=== PATIENT | female | born 1975 | race Caucasian/White ===

== ENCOUNTER → 2016-09-19 | Outpatient (CLI) | payer OTHER ==
[~2016-09-19] MED LIST: CITA40TA12 PO; FLUD0.1T10 PO; FOLI1TAB7 PO; NORT25CA PO
[2016-09-19 13:42] LABS: BLOOD UREA NITROGEN 5 mg/dl (7-18); BUN/CREATININE RATIO 5.1 (10-20); CALCIUM 8.4 mg/dl (8.5-10.1); CARBON DIOXIDE 31 mmol/L (21-32); CHLORIDE 98 mmol/L (98-107); CREATININE 0.98 mg/dl (0.60-1.20); GLUCOSE 72 mg/dl (70-99); PHOSPHORUS 2.3 mg/dl (2.5-4.9); POTASSIUM 2.6 mmol/L (3.5-5.1); SODIUM 138 mmol/L (136-145)
== END | disposition home or self-care (01) ==
LOC: C.LABMFLN 10:55
PROVIDERS: ATTEND Family Medicine
DX: E87.6 Hypokalemia (principal)

== ENCOUNTER → 2016-10-10 | Outpatient (CLI) | payer OTHER ==
[2016-10-10 18:23] LABS: BLOOD UREA NITROGEN 11 mg/dl (7-18); BUN/CREATININE RATIO 11.9 (10-20); CALCIUM 8.6 mg/dl (8.5-10.1); CARBON DIOXIDE 31 mmol/L (21-32); CHLORIDE 101 mmol/L (98-107); CREATININE 0.89 mg/dl (0.60-1.20); GLUCOSE 90 mg/dl (70-99); POTASSIUM 3.5 mmol/L (3.5-5.1); SODIUM 141 mmol/L (136-145)
[2016-10-10 18:24] LABS: PHOSPHORUS 2.5 mg/dl (2.5-4.9)
== END | disposition home or self-care (01) ==
LOC: C.LABMFLN 10:31
PROVIDERS: ATTEND Family Medicine
DX: E87.6 Hypokalemia (principal)

== ENCOUNTER → 2017-04-23 | Outpatient (CLI) | payer OTHER ==
[2017-04-23 14:05] LABS: FERRITIN 5.8 ng/ml (8.0-388.0)
== END | disposition home or self-care (01) ==
LOC: C.LABMFLN 07:57
PROVIDERS: ATTEND Family Medicine
DX: G25.81 Restless legs syndrome (principal)

== ENCOUNTER → 2017-07-01 | Outpatient (CLI) | payer OTHER ==
[~2017-07-01] MED LIST changes: +GADAVIST IV PRN
--- NOTE | 2017-07-01 14:31 | DIAGNOSTIC IMAGING REPORT ---
MRI OF THE BRAIN WITHOUT AND WITH IV CONTRAST CLINICAL HISTORY: HEADACHES COMPARISON STUDY: No previous studies for comparison. TECHNIQUE: MRI of the brain was performed from the vertex to the skull base utilizing various T1 and T2 weighted sequences. Following the IV administration of 5.5 mL of Gadavist contrast, additional enhanced images were obtained. FINDINGS: Sagittal T1, axial diffusion, proton density and T2 weighted axial, coronal FLAIR, and pre and post axial T1-weighted images were acquired. These were supplemented with post gadolinium coronal T1 weighted images. No intra or extra-axial mass lesions are visualized. Axial diffusion-weighted images reveal no evidence of acute or subacute infarction. There is no evidence of ventricular dilatation. Proton density T2-weighted and FLAIR images reveal a few small foci of increased T2 and FLAIR signal within the frontal white matter. These are nonspecific, and are likely small vessel basis, or related to chronic migraines. There are no abnormal flow voids. There is no evidence of pathologic enhancement. IMPRESSION: 1. No acute intracranial findings 2. No evidence of acute or subacute infarction 3. No evidence of intracranial mass 4. There are few nonspecific foci of increased T2 and FLAIR signal within the frontal white matter. Electronically signed by: Edmundo Pierre M.D. 07/01/2017 2:29 PM Dictated Date/Time: 07/01/2017 2:27 PM
== END | disposition home or self-care (01) ==
LOC: C.MRIBC 13:45
PROVIDERS: ATTEND Psychiatry & Neurology Neurology
DX: G24.9 Dystonia, unspecified (principal); R51 Headache

== ENCOUNTER → 2017-08-02 | Outpatient (CLI) | payer OTHER ==
[~2017-08-02] MED LIST changes: -FOLI1TAB7 PO; +FOLI1TAB8 PO; -GADAVIST IV PRN
[2017-08-02 17:56] LABS: BLOOD UREA NITROGEN 7 mg/dl (7-18); BUN/CREATININE RATIO 7.6 (10-20); CALCIUM 8.3 mg/dl (8.5-10.1); CARBON DIOXIDE 29 mmol/L (21-32); CHLORIDE 102 mmol/L (98-107); CREATININE 0.88 mg/dl (0.60-1.20); GLUCOSE 82 mg/dl (70-99); PHOSPHORUS 2.3 mg/dl (2.5-4.9); POTASSIUM 3.2 mmol/L (3.5-5.1); SODIUM 137 mmol/L (136-145)
== END | disposition home or self-care (01) ==
LOC: C.LABMFLN 13:26
PROVIDERS: ATTEND Family Medicine
DX: I95.1 Orthostatic hypotension (principal)

== ENCOUNTER → 2017-10-15 | Outpatient (CLI) | payer OTHER ==
[2017-10-15 18:13] LABS: ALBUMIN 3.8 gm/dl (3.4-5.0); BLOOD UREA NITROGEN 11 mg/dl (7-18); CALCIUM 8.7 mg/dl (8.5-10.1); CARBON DIOXIDE 29 mmol/L (21-32); CREATININE 0.87 mg/dl (0.60-1.20); GLUCOSE 118 mg/dl (70-99); POTASSIUM 3.2 mmol/L (3.5-5.1); SODIUM 136 mmol/L (136-145)
[2017-10-15 18:14] LABS: PHOSPHORUS 2.4 mg/dl (2.5-4.9)
== END | disposition home or self-care (01) ==
LOC: C.LABMFLN 15:33
PROVIDERS: ATTEND Family Medicine
DX: E87.6 Hypokalemia (principal)

== ENCOUNTER 2023-12-24 12:16 | Inpatient (IN) ==
--- NOTE | 2023-12-24 12:34 | Emergency Department Note ---
ED Provider Note History of Present Illness Chief Complaint: Ear Pain/Problem Stated Complaint: RT EAR PAIN, MOVING DOWN FACE Time Seen by Provider: 12/24/23 12:33 This is a 48-year-old female general with a prior history of wall up mastoidectomy, mastoiditis transferred to [facility] 7 months ago, hearing loss uses bilateral hearing aids, CKD, who presents to the emergency department with pain behind her right ear that started last night and worsened today. She is concerned she is developing another infection as this feels very similar. Patient was seen in this emergency department 7 months ago and was subsequently transferred to [facility] where she was admitted. She states that the area behind her ear was aspirated multiple times and grew out E. coli and she was treated with IV antibiotics and then oral antibiotics. She states that she has a history of a recurrent UTI which also grows out E. coli and she feels like she has a UTI right now. Her urine has been more malodorous lately which is consistent with her UTIs. She denies any fevers or drainage from her ear canal. Nothing draining from behind her ear. Has not taken anything for the pain yet. Does not get her periods any longer. History of tympanostomy tubes in the past, does not have any tubes currently. Home Medications Medication Instructions Recorded Confirmed Type [id number] 1 tab PO Q4H PRN headache #30 tabs 06/19/19 12/24/23 Rx 50 mg-325 mg-40 mg tablet cetirizine 10 mg tablet 10 mg PO BID #60 tabs 08/20/19 12/24/23 Rx hydroxyzine HCl 25 mg tablet 25 mg PO HS PRN Itching 02/23/20 12/24/23 History multivitamin-ferrous 1 tab PO HS 02/23/20 12/24/23 History fumarate-folic acid 18 mg-400 mcg tablet (Centrum Women) cyanocobalamin (vitamin B-12) 1,000 mcg subcut .COMPLEX 05/27/20 12/24/23 History 1,000 mcg/mL injection solution rizatriptan 10 mg disintegrating 10 mg PO .COMPLEX #10 tabs 11/24/21 12/24/23 Rx tablet vortioxetine 10 mg tablet 20 mg PO DAILY 11/24/21 12/24/23 History (Trintellix) epinephrine 0.3 mg/0.3 mL 0.3 mg (0.3 mL) IM Q4H PRN 03/20/23 12/24/23 Rx injection, auto-injector (EpiPen anaphylaxis #2 [id number]) nortriptyline 25 mg capsule 75 mg (3 x 25 mg) PO HS #270 caps 07/08/23 12/24/23 Rx alprazolam 1 mg tablet 1 mg PO HS #30 tabs 08/19/23 12/24/23 History quetiapine 25 mg tablet (Seroquel) 75 mg PO HS 08/19/23 12/24/23 History famotidine 20 mg tablet 20 mg PO HS 10/21/23 12/24/23 History folic acid 1 mg tablet 1 mg PO DAILY 12/24/23 12/24/23 History ropinirole 0.25 mg tablet 0.5 mg PO HS PRN Other 12/24/23 12/24/23 History Allergies Allergy/AdvReac Type Severity Reaction Status Date / Time ciprofloxacin [From Cipro] Allergy Intermediate Hives Verified 11/06/23 15:10 Iodinated Contrast Media Allergy Intermediate HIVES, Verified 11/06/23 15:10 DIARRHEA Sulfa (Sulfonamide Allergy Intermediate HIVES Verified 11/06/23 15:10 Antibiotics) Past Med/Surg History Problem List (Updated 12/24/23 @ 22:32 by ABNER Esqueda) Middle ear effusion (Acute) Cellulitis of postauricular region (Acute) Mastoiditis of right side Abnormal Pap smear of cervix (~11/06/23) NILM HPV positive. 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 [place] [facility] [place] 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 ([place]) Medical History Scoliosis IBS (irritable bowel syndrome) Hearing loss Orthostatic hypotension 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, 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 prosthesis in place Surgical History H/O lithotripsy H/O pelvic surgery desmoid tumor, s/p chemo and surgery History of ear surgery TUBE INSERTED AND REMOVED H/O dilation and curettage H/O section History of bronchoscopy Family History Mother Diabetes Sinus disorder Grandmother (Maternal) Non Hodgkin's lymphoma Social History Smoking Status: Never smoker Second Hand Exposure: Yes; Do You Dip or Chew Tobacco: No; Hx Alcohol Use: Yes Alcohol type: wine Hx Substance Use: No Preferred Language: Romansh Communication Ability: Effective Visual Impairment: No Limitations Hvac/R Instructor Required: No Beliefs That Will Affect Care: None marital status: Current Living Situation: Alone, Spouse and Parent Current Living Situation Comment: one story home current occupational status: employed Other Information That Helps Us Care for You: No Feels Safe at Home: Yes Safety Concerns: Feels Safe At This Time Assistive Devices: Denture - Upper, Glasses and Hearing Aid - Bilateral Physical Exam Vital Signs Vital Signs - 24 hr 12/24/23 12:29 12/24/23 14:00 Temperature 97.7 F Temperature Source Oral Pulse Rate 102 H Pulse Rate [Left Finger] 92 H Respiratory Rate 20 20 Blood Pressure 131/82 Blood Pressure [Left Arm] 142/100 H Blood Pressure Mean 98 Blood Pressure Mean [Left Arm] 114 Pulse Oximetry 97 100 Sepsis Recent Fever Within 48 Hours No Sepsis New/Unexplained Change in Mental Status No Sepsis Action Taken by Nursing No Action Required CONSTITUTIONAL: Well developed, well nourished, appears to be in pain holding the right ear HEAD: Normocephalic, atraumatic. EYES: PERRL, conjunctivae normal, extraocular muscles intact. No periorbital edema or erythema. ENMT: Left ear: Unremarkable exam Right ear: No obvious edema or erythema about the external ear. There is erythema and exquisite tenderness noted to the posterior auricular and mastoid area. There is no fluctuance. No active discharge. No open wounds. The canal is clear. TM partially visualized which does not appear to be obviously erythematous or bulging, no obvious perforation. Exam limited by patient's discomfort. Oral mucous membranes are moist. Cleft palate device in place. No oropharyngeal erythema. NECK: Full active range of motion. No rigidity. LYMPHATIC: There is right anterior cervical adenopathy. RESPIRATORY: Breathing unlabored and symmetric. Lungs clear to auscultation bilaterally. No wheeze, rales, or rhonchi. CARDIOVASCULAR: Regular rate and rhythm. No murmurs, rubs, or gallops. MUSCULOSKELETAL: Moves all extremities at all joints without pain or difficulty. SKIN: Bertrand, warm, dry. NEUROLOGIC: Awake, alert, oriented. Gaze is conjugate. Face symmetric, speech normal. Moves head and all four extremities spontaneously. Course Administered Medications Alprazolam (Alprazolam 0.5 Mg Tablet) 1 mg PO HS [facility] Stop: 01/23/24 20:59 Last Admin: 12/24/23 21:23 Dose: 1 mg Documented By: RES Cetirizine HCl (Cetirizine Hcl 10 Mg Tablet) 10 mg PO BID [facility] Stop: 01/23/24 20:59 Last Admin: 12/24/23 19:31 Dose: 10 mg Documented By: RES Famotidine (Famotidine 20 Mg Tab) 20 mg PO [facility] Stop: 01/23/24 20:59 Last Admin: 12/24/23 19:31 Dose: 20 mg Documented By: KELLEN Hydromorphone HCl (Hydromorphone Inj 1 Mg/Ml Syringe) 1 mg IV Q4H PRN PRN Reason: Severe Pain (7,8,9,10) on NRS Stop: 01/07/24 16:40 Last Admin: 12/24/23 19:35 Dose: 1 mg Documented By: RES Piperacillin Sod/Tazobactam (Sod 4.5 gm/ Dextrose) 100 mls @ 25 mls/hr IV Q12H [facility]; Protocol Stop: 01/03/24 21:59 Last Admin: 12/24/23 21:23 Dose: 25 mls/hr Documented By: KELLEN Miscellaneous (Trintellix~Order Awaiting Action) 1 each N/A QS [facility] Stop: 01/23/24 17:59 Last Admin: 12/24/23 19:30 Dose: Not Given Documented By: KELLEN Multivitamins/Minerals (Cerovite Adv Formula Tab) 1 tab PO [facility] Stop: 01/23/24 20:59 Last Admin: 12/24/23 19:31 Dose: 1 tab Documented By: KELLEN Nortriptyline HCl (Nortriptyline Hcl 25 Mg Cap) 75 mg PO [facility] Stop: 01/23/24 20:59 Last Admin: 12/24/23 19:30 Dose: 75 mg Documented By: KELLEN Quetiapine Fumarate (Quetiapine Fumarate 25 Mg Tablet) 75 mg PO [facility] Stop: 01/23/24 20:59 Last Admin: 12/24/23 19:31 Dose: 75 mg Documented By: KELLEN Discontinued Medications Hydromorphone HCl (Hydromorphone Inj 0.5 Mg/0.5 Ml Syr) 0.5 mg IV NOW STA Stop: 12/24/23 14:55 Last Admin: 12/24/23 15:00 Dose: 0.5 mg Documented By: DICKSON Sodium Chloride (Nss) 1,000 mls @ 999 mls/hr IV .Q1H1M ONE Stop: 12/24/23 13:49 Last Infusion: 12/24/23 14:20 Dose: Infused Documented By: Admin: 12/24/23 13:19 Dose: 999 mls/hr Documented By: DICKSON Sodium Chloride (Nss) 500 mls @ 999 mls/hr IV .Q31M ONE Stop: 12/24/23 15:03 Last Infusion: 12/24/23 15:49 Dose: Infused Documented By: Admin: 12/24/23 14:49 Dose: 999 mls/hr Documented By: BRENDA Piperacillin Sod/Tazobactam Sod (Zosyn) 4.5 gm in 100 mls @ 200 mls/hr IV NOW ONE Stop: 12/24/23 16:21 Last Infusion: 12/24/23 16:42 Dose: Infused Documented By: Admin: 12/24/23 16:10 Dose: 200 mls/hr Documented By: BRENDA Morphine Sulfate (Morphine Sulfate 4 Mg/Ml 1 Ml Carp\Vial) 4 mg IV NOW STA Stop: 12/24/23 12:50 Last Admin: 12/24/23 13:19 Dose: 4 mg Documented By: DICKSON Medical Decision Making Differential Diagnosis Mastoiditis, otitis media, otitis externa, abscess, cellulitis, deep neck space infection, lymphadenopathy, among other pathology Medical Records Attestation: I reviewed the patient's medical records. (Reviewed prior ER notes, reviewed discharge summary from [facility] from last year.) Laboratory Data 12/24/23 13:10 12/24/23 13:10 Lab Results 12/24/23 12/24/23 12/24/23 Range/Units 13:00 13:10 15:10 WBC 14.06 H (4.8-10.8) K/ul RBC 4.38 (4.20-5.40) M/uL Hgb 12.7 (12.0-16.0) g/dl Hct 38.9 (37.0-47.0) % MCV 88.8 (80.0-100.0) fL MCH 29.0 (25.0-34.0) pg MCHC 32.6 (32.0-36.0) g/dL RDW Std Deviation 49.3 H (36.4-46.3) fL RDW Coeff of Oscar 15.2 H (11.5-14.5) % Plt Count 241 (130-400) K/uL MPV 10.7 (9.4-12.4) fL Immature Gran % (Auto) 0.5 % Neut % (Auto) 80.4 % Lymph % (Auto) 10.9 % Drew % (Auto) 5.8 % Eos % (Auto) 1.8 % Baso % (Auto) 0.6 % Neut # (Auto) 11.30 H (1.40-6.50) K/uL Lymph # (Auto) 1.53 (1.20-3.40) K/uL Drew # (Auto) 0.82 H (0.11-0.59) K/uL Eos # (Auto) 0.26 (0.00-0.50) K/uL Baso # (Auto) 0.08 (0.00-0.20) K/uL Immature Gran # (Auto) 0.07 (0.01-0.20) K/uL ESR 45 H (0-20) mm/hr Sodium 137 (136-145) mmol/L Potassium 4.9 (3.5-5.1) mmol/L Chloride 101 (98-107) mmol/L Carbon Dioxide 27 (21-32) mmol/L Anion Gap 9 (3-11) BUN 17 (6-23) mg/dl Creatinine 1.35 H (0.6-1.2) mg/dl Est Cr Clr Drug Dosing 47.3 ml/min Est GFR ( Amer) 53.3 ml/min Est GFR (Non-Af Amer) 46.0 ml/min BUN/Creatinine Ratio 12.6 (10-20) Glucose 94 (70-99(Fasting)) mg/dl Lactate 2.5 H* 1.9 (0.4-2.0) mmol/L Calcium 10.2 (8.6-10.3) mg/dl Total Bilirubin 0.4 (0.2-1.0) mg/dl AST 23 (13-39) U/L ALT 29 (7-52) U/L Alkaline Phosphatase 88 (34-104) U/L C-Reactive Protein 0.99 H (0-0.5) mg/dl Total Protein 7.5 (6.0-8.3) gm/dl Albumin 4.1 (3.4-5.0) gm/dl Globulin 3.4 (2.5-4.0) gm/dl Albumin/Globulin Ratio 1.2 (0.9-2) Procalcitonin 0.08 (0-0.5) ng/ml Urine Color Yellow Urine Appearance Clear (Clear) Urine pH 8.0 H (4.5-7.5) Ur Specific [place] 1.010 (1.000-1.030) Urine Protein Negative (Negative) Urine Glucose (UA) Negative (Negative) Urine Ketones Negative (Negative) Urine Blood Negative (Negative) Urine Nitrite Negative (Negative) Urine Bilirubin Negative (Negative) Urine Urobilinogen Negative (Negative) Ur Leukocyte Esterase 1+ H (Negative) Urine WBC (Auto) 6-10 H (0-5) /hpf Urine RBC (Auto) 0-2 (0-2) /hpf U Hyaline Cast (Auto) 0-2 (0-2) /lpf U Epithel Cells (Auto) 6-10 H (0-2) /hpf Urine Bacteria (Auto) None Seen (None Seen) Imaging Data Radiologist's Impression: Temporal Bone CT 12/24/23 13:05 CT temporal bones wo con HISTORY: 48 years-old Female Right sided mastoid redness, tender, hx similar chronic right ear pain COMPARISON: CT temporal bone study 07/06/2023 TECHNIQUE: Multiple axial CT images of the temporal bones were obtained without IV contrast. A dose lowering technique was used consistent with the principals of ALARA. FINDINGS: The imaged intracranial structures demonstrate no acute abnormality. A left- sided hearing aid is present causes streak artifact limiting evaluation of the adjacent structures. A metallic density overlies also causes adjacent streak artifact. Chronic-appearing bony defects in the left maxillary alveolar ridge. Leftward bowing and spurring of the nasal septum. Paranasal sinuses are generally clear. Unremarkable orbits. LEFT: Mastoid air cells are clear. The middle ear cavity is clear. Middle ear ossicles and tympanic membrane appear normal. The scutum is sharp. Intact tegmen tympani. Normal course of the 7th cranial nerve. Normal cochlea and semicircular canals. RIGHT: Subcutaneous edema/soft tissue thickening is again noted in the right periauricular tissues, most pronounced superiorly and posteriorly contiguous with the right mastoidectomy site. Again, the mastoidectomy site is completely opacified. Unchanged osseous irregularity at the mastoidectomy defect, likely a postoperative basis. Mild thickening within the cartilaginous portion of the external auditory canal redemonstrated. The right tympanic membrane is again not identified, possibly absent or retracted. The right middle ear cavity is partially opacified. There is a partial ossicular replacement prosthesis noted which is in the posterior aspect of the middle ear cavity. The residual malleus and incus appear to be irregular consistent with partial erosion. The 7th cranial nerve demonstrates a normal course. No evidence for inner ear dysplasia. IMPRESSION: 1. No significant change compared to the study from 07/06/2023. 2. Findings again suggestive of right-sided otitis externa with periauricular soft tissue prominence contiguous with the mastoidectomy site. These findings may be on a postoperative basis or represent a chronic infectious or inflammatory process. 3. No drainable fluid collections. 4. Right middle ear effusion with chronic bony irregularity of the middle ear ossicles. 5. Normal appearance of the left temporal bone. ACT 112: Negative or not required by law. The above report was generated using voice recognition software. It may contain grammatical, syntax or spelling errors. Electronically signed by: Mazin Au M.D. 12/24/2023 2:17 PM MDM Narrative 48-year-old female presents to the emergency department with worsening severe pain behind her right ear that started yesterday and progressed today. Feels similar to when she was transferred to [facility] 6 months ago for similar presentation. See above for further details. Patient does appear to be uncomfortable holding the right ear. She is tachycardic initially. Afebrile. She has erythema about the right postauricular region which is exquisitely tender to palpation. I am only able to partially visualize the TM limited by discomfort. An IV was inserted and labs were obtained. Patient was given IV fluids and morphine for pain control. Blood cultures were obtained. Labs: Leukocytosis at 14. No anemia. ESR elevated at 45. CRP elevated at 0.99. Creatinine baseline 1.35. Lactate initially elevated at 2.5. This improved to 1 point 1:09 0.5 L IV fluids. No transaminitis. Urine with 1+ leukocyte esterase, 6-10 white blood cells and 6-10 epithelial cells. Reviewed options for imaging with Dr. Ram (radiology) who feels temporal bone CT without contrast would be appropriate initially. This was obtained and read as right-sided otitis externa with periauricular soft tissue prominence, right middle ear effusion, similar to when the patient was seen in this emergency department in June of last year and subsequently transferred. Patient required Dilaudid to control her pain. I called and spoke with Dr. Bailon (ENT on-call) and we reviewed her prior presentation as well as imaging from today. She requested that I speak with [facility] for possible transfer if the patient requires an advanced procedure. I called and spoke with Dr. Hastings (Otolaryngology) at [facility]. He reviewed her prior records. Based on her CT read from today and presentation, he feels comfortable with her not being transferred and being managed medically with IV antibiotics and close monitoring. He will review her images and if he sees anything requiring surgery, will call back to suggest transfer. He states that he will be on-call over the next week and if the patient requires any surgical procedure, he would be happy to accept her. He recommends Zosyn and possible ID consult. I then called back and spoke with Dr. Bailon who is agreeable with the patient being admitted under the hospitalist with ENT consult. Patient agreeable with this plan. Spoke with Dr. Grissom ([facility] hospitalist) who agrees to admit the patient. Impression Cellulitis of postauricular region, Middle ear effusion Discharge Plan Visit Data Chief Complaint: Ear Pain/Problem Stated Complaint: RT EAR PAIN, MOVING DOWN FACE ED Provider: Luis Enrique Manuel ED Midlevel Provider: Harmeet Marshall Discharge Problem: Cellulitis of postauricular region, Middle ear effusion Patient Disposition: Admitted As Inpatient Discharge Instructions Interventions: ED Discharge Assessment Last Done: 12/24/23 17:45 Discharge Problem: Middle ear effusion Qualifiers: Laterality: right Qualified Code(s): H65.91 - Unspecified nonsuppurative otitis media, right ear
[2023-12-24] MEDS: SODIUM CHLORIDE 0.9% 1,000 ML IV ONE (13:19)
[2023-12-24] MEDS: MoRPHine SULFATE 4 MG/ML 1 ML CARP\\VIAL IV STA (13:19)
[2023-12-24 13:31] LABS: Basophils # (auto) 0.08 K/uL (0.00-0.20); Basophils % (auto) 0.6 %; Eosinophils # (auto) 0.26 K/uL (0.00-0.50); Eosinophils % (auto) 1.8 %; Hematocrit (blood only) 38.9 % (37.0-47.0); Hemoglobin 12.7 g/dl (12.0-16.0); Immature Granulocytes # (auto) 0.07 K/uL (0.01-0.20); Immature Granulocytes % (auto) 0.5 %; Lymphocytes # (auto) 1.53 K/uL (1.20-3.40); Lymphocytes % (auto) 10.9 %; Mean Corpuscular Hgb Conc 32.6 g/dL (32.0-36.0); Mean Corpuscular Volume 88.8 fL (80.0-100.0); Mean Platelet Volume 10.7 fL (9.4-12.4); Monocytes # (auto) 0.82 K/uL (0.11-0.59); Monocytes % (auto) 5.8 %; Neutrophils % (auto) 80.4 %; Platelet Count 241 K/uL (130-400); RDW Coefficient of Variation 15.2 % (11.5-14.5); RDW Standard Deviation 49.3 fL (36.4-46.3); Red Blood Count 4.38 M/uL (4.20-5.40); White Blood Count 14.06 K/ul (4.8-10.8)
[2023-12-24 13:55] LABS: Albumin Globulin Ratio 1.2 (0.9-2); Albumin Level 4.1 gm/dl (3.4-5.0); BUN Creatinine Ratio 12.6 (10-20); Bilirubin,Total 0.4 mg/dl (0.2-1.0); C Reactive Protein 0.99 mg/dl (0-0.5); Calcium 10.2 mg/dl (8.6-10.3); Creatinine Clr Calc Pharmacy 47.3 ml/min; Est GFR (African American) 53.3 ml/min; Globulin 3.4 gm/dl (2.5-4.0); Potassium 4.9 mmol/L (3.5-5.1); Total Protein 7.5 gm/dl (6.0-8.3)
[2023-12-24 14:18] LABS: Appearance Urine Clear (Clear); Bacteria Urine Automated None Seen (None Seen); Bilirubin Urine Negative (Negative); Blood Urine Negative (Negative); Cast Urine Automated 0-2 /lpf (0-2); Color Urine Yellow; Glucose Urine UA Negative (Negative); Ketones Urine Negative (Negative); Leukocyte Esterase Urine 1+ (Negative); Nitrite Urine Negative (Negative); Protein Urine Negative (Negative); RBC Urine Automated 0-2 /hpf (0-2); Urobilinogen Urine Negative (Negative)
--- NOTE | 2023-12-24 14:18 | CT Scan Report ---
CT temporal bones wo con HISTORY: 48 years-old Female Right sided mastoid redness, tender, hx similar chronic right ear pain COMPARISON: CT temporal bone study 07/06/2023 TECHNIQUE: Multiple axial CT images of the temporal bones were obtained without IV contrast. A dose l owering technique was used consistent with the principals of VILMA. FINDINGS: The imaged intracranial structures demonstrate no acute abnormality. A left-sided hearing aid is pres ent causes streak artifact limiting evaluation of the adjacent structures. A metallic density overlie s also causes adjacent streak artifact. Chronic-appearing bony defects in the left maxillary alveolar ridge. Leftward bowing and spurring of the nasal septum. Paranasal sinuses are generally clear. Unre markable orbits. LEFT: Mastoid air cells are clear. The middle ear cavity is clear. Middle ear ossicles and tympanic membran e appear normal. The scutum is sharp. Intact tegmen tympani. Normal course of the 7th cranial nerve. Normal cochlea and semicircular canals. RIGHT: Subcutaneous edema/soft tissue thickening is again noted in the right periauricular tissues, most pro nounced superiorly and posteriorly contiguous with the right mastoidectomy site. Again, the mastoidec adrian site is completely opacified. Unchanged osseous irregularity at the mastoidectomy defect, likely a postoperative basis. Mild thickening within the cartilaginous portion of the external auditory can al redemonstrated. The right tympanic membrane is again not identified, possibly absent or retracted. The right middle ear cavity is partially opacified. There is a partial ossicular replacement prosthe sis noted which is in the posterior aspect of the middle ear cavity. The residual malleus and incus a ppear to be irregular consistent with partial erosion. The 7th cranial nerve demonstrates a normal co urse. No evidence for inner ear dysplasia. IMPRESSION: 1. No significant change compared to the study from 07/06/2023. 2. Findings again suggestive of right-sided otitis externa with periauricular soft tissue prominence contiguous with the mastoidectomy site. These findings may be on a postoperative basis or represent a chronic infectious or inflammatory process. 3. No drainable fluid collections. 4. Right middle ear effusion with chronic bony irregularity of the middle ear ossicles. 5. Normal appearance of the left temporal bone. ACT 112: Negative or not required by law. The above report was generated using voice recognition software. It may contain grammatical, syntax o r spelling errors. Electronically signed by: Mazin Au M.D. 12/24/2023 2:17 PM
[2023-12-24] MEDS: SODIUM CHLORIDE 0.9% 500 ML IV ONE (14:49)
[2023-12-24] MEDS: HYDROmorphone INJ 0.5 MG/0.5 ML SYR IV STA (15:00)
[2023-12-24] MEDS: PIPERACILLIN/TAZOBACTAM 4.5 GM/100 ML BAG IV ONE (16:10)
--- NOTE | 2023-12-24 16:37 | History & Physical Report ---
Date of Service December 24, 2023 Assessment & Plan (1) Mastoiditis of right side: Plan: Recurrent R ear infection - s/p distant mastoidectomy many years ago - hx of mastoiditis tx at [facility] [place] 7 months ago - Pain/pressure behind R ear without drainage x24 hours similar to her prior episode of mastoiditis [employer] On exam right posterior ear overlying the mastoid is with a well-healed surgical incision, this is warm, erythematous, and tender to palpation consistent with recurrent mastoiditis, no discharge or fluctuance is appreciated - ENT consulted. Dr. Bailon recommended [facility] [facility] consultation --> Dr. Hastings ENT who reviewed the imaging. Did not feel transfer was needed. Is on until Saturday, and if she clinically worsened would be happy to accept for transfer at that time but recommends admit here at this time with Zosyn and ID consultation and no surgical intervention was recommended. Dr. Bailon aware and OK to consult with medical admission. -Leukocytosis of 14 on admission, lactate elevated and subsequently normalized with fluids. On reassessment she is with normal respiration, no hypotension, improving tachycardia. She does not appear septic. 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 Plan DVT prophylaxis: SCDs, ambulate Diet: History of Present Illness Primary Care Provider: ABHISHEK Nettles Paola is a 48-year-old female with past medical history of chronic idiopathic urticaria, mast cell disorder, hide allergy to sulfa/Cipro/contrast, depression, restless leg syndrome, past TM perforation, mastoidectomy/mastoiditis reviewed at [facility] 7 months ago who presents to the ER for right ear pain with extension into the face. She was seen 7 months ago and transferred to [facility] for mastoiditis which required multiple needle aspirations in ich was culture positive for E. coli. While in ER temporal bone CT showed evidence of right-sided otitis externa with soft tissue prominence continuous with her mastoidectomy site which could be either postoperative or reflective of a chronic inflammatory/infectious process. Right middle ear effusion with bony irregularity of the ossicles was noted. There was no noted drainable fluid collection. No significant change compared to 2022. Case was reviewed between ER provider and ENT Dr. Bailon. Patient was felt to be appropriate for admission to this facility. [facility] was conta cted. She was recommended for inpatient admission and Zosyn. Prior E. coli cultures which have been in the urine were ampicillin resistant, Unasyn intermediate, and Zosyn sensitive. Blood cultures from [facility] pending. She does have a leukocytosis of 14. Creatinine baseline fluctuates 1.271.56, admitting creatinine 1.35 near baseline. Renally dose medications as needed CRP slightly elevated at 0.99 and trended UA is not infected appearing Lacatet elevated, normalized with fluid She is seen at the bedside with her present. She reports she developed some posterior right ear discomfort last night around 10 PM. This morning she had increased ear discomfort and throbbing not severe but behind her ear at the site of her prior mastoidectomy and aspirations. She has had some sweats with menopause, otherwise denies fever, chills, sweats. No chest pain or chest pressure. No lightheadedness, dizziness, syncope, presyncope. No nausea or vomiting. Other than her ear discomfort she has not noticed any new symptoms. She did take her medications this morning. Reviewed plan of care and discussions with [facility] above and patient in agreement with plan. No additional questions Medical History: Reviewed Medications: Reviewed Surgical History: Reviewed Family history: Reviewed Allergies: Reviewed Social History: Reviewed Code Status: Full Allergies Allergy/AdvReac Type Severity Reaction Status Date / Time ciprofloxacin [From Cipro] Allergy Intermediate Hives Verified 11/06/23 15:10 Iodinated Contrast Media Allergy Intermediate HIVES, Verified 11/06/23 15:10 DIARRHEA Sulfa (Sulfonamide Allergy Intermediate HIVES Verified 11/06/23 15:10 Antibiotics) Home Medications Medication Instructions Recorded Confirmed Type ynxgvcddle-aikxtysbkqazr-tfbubtzl 1 tab PO Q4H PRN headache #30 tabs 06/19/19 12/24/23 Rx 50 mg-325 mg-40 mg tablet cetirizine 10 mg tablet 10 mg PO BID #60 tabs 08/20/19 12/24/23 Rx hydroxyzine HCl 25 mg tablet 25 mg PO HS PRN Itching 02/23/20 12/24/23 History multivitamin-ferrous 1 tab PO HS 02/23/20 12/24/23 History fumarate-folic acid 18 mg-400 mcg tablet (Centrum Women) cyanocobalamin (vitamin B-12) 1,000 mcg subcut .COMPLEX 05/27/20 12/24/23 History 1,000 mcg/mL injection solution rizatriptan 10 mg disintegrating 10 mg PO .COMPLEX #10 tabs 11/24/21 12/24/23 Rx tablet vortioxetine 10 mg tablet 20 mg PO DAILY 11/24/21 12/24/23 History (Trintellix) epinephrine 0.3 mg/0.3 mL 0.3 mg (0.3 mL) IM Q4H PRN 03/20/23 12/24/23 Rx injection, auto-injector (EpiPen anaphylaxis #2 ea 2-Hugo) nortriptyline 25 mg capsule 75 mg (3 x 25 mg) PO HS #270 caps 07/08/23 12/24/23 Rx alprazolam 1 mg tablet 1 mg PO HS #30 tabs 08/19/23 12/24/23 History quetiapine 25 mg tablet (Seroquel) 75 mg PO HS 08/19/23 12/24/23 History famotidine 20 mg tablet 20 mg PO HS 10/21/23 12/24/23 History folic acid 1 mg tablet 1 mg PO DAILY 12/24/23 12/24/23 History ropinirole 0.25 mg tablet 0.5 mg PO HS PRN Other 12/24/23 12/24/23 History Past Med/Surg History Problem List (Updated 12/24/23 @ 16:32 by Bear Grissom MD) Mastoiditis of right side Abnormal Pap smear of cervix (~11/06/23) NILM HPV positive. 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 [place] [facility] [place]. 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 [place]s [place] [facility] [place]. Uses Epi-pen PRN, most recently ~ 03/12/20 History of cancer HX DESMOID TUMOR - 1994 - CHEMO AND SX REMOVED ([place]) Chronic kidney disease, stage 3a Scoliosis IBS (irritable bowel syndrome) Hearing loss Depression Rx Trintellix, follows with Dr Stiles and therapist Anxiety Alprazolam 1 mg PRN Migraine Nortriptyline for preventative, Fioricit and triptan for abortive therapy Orthostatic hypotension Restless leg syndrome Rx Requip 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, 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 prosthesis in place Surgical History H/O lithotripsy H/O pelvic surgery desmoid tumor, s/p chemo and surgery History of ear surgery TUBE INSERTED AND REMOVED H/O dilation and curettage H/O section History of bronchoscopy Family History Mother Diabetes Sinus disorder Grandmother (Maternal) Non Hodgkin's lymphoma Social History Smoking Status: Never smoker Second Hand Exposure: Yes; Do You Dip or Chew Tobacco: No; Hx Alcohol Use: No Hx Substance Use: No Preferred Language: Jordanian Communication Ability: Effective Visual Impairment: No Limitations Mathematics Academic Chair Required: No Beliefs That Will Affect Care: None marital status: Current Living Situation: Spouse Current Living Situation Comment: , SON AND PT'S FATHER current occupational status: employed Feels Safe at Home: Yes Physical Exam Physical Exam: General: A&Ox3. NAD. Cooperative. HEENT: Atraumatic, normocephalic. Right posterior ear overlying the mastoid is with a well-healed surgical incision, this is warm, erythematous, and tender to palpation consistent with recurrent mastoiditis, no discharge or fluctuance is appreciated. Pain limits TM evaluation. L ear normal. Pulm: CTAB A&P. -wheezes, -rales, -rhonchi. Symmetrical chest rise. No increased work of breathing. No respiratory distress. Cardiac: Regular, tachycardic. -mrg Results & Data Results & Data Vital Signs (Past 12 Hours) Vital Signs Temp Pulse Pulse Resp BP BP Pulse Ox 12/24/23 14:00 92 H 20 142/100 H 100 12/24/23 12:29 36.5 C 102 H 20 131/82 97 PG Care Time/CCT Total # of Minutes Spent Total Time Spent with Patient: Total time spent is greater than 50% in coordination of care (as documented) at patient's floor/unit and/or counseling patient: Coding Level of Care Code 23641 INT INP/OBS CARE 3/75MIN Diagnoses Mastoiditis of right side H70.91 Anxiety F41.9 Idiopathic anaphylaxis, subsequent encounter T78.2XXD Encounter type: subsequent encounter Mast cell disorder D47.09 Cleft lip Q36.9 (3) Idiopathic anaphylaxis Encounter type: subsequent encounter Qualified Code(s): T78.2XXD - Anaphylactic shock, unspecified, subsequent encounter
[2023-12-24] MEDS ORDERED: HYDROmorphone INJ 0.5 MG/0.5 ML SYR IV PRN (16:41)
[2023-12-24] MEDS ORDERED: rOPINIRole HCL 0.25 MG TABLET PO PRN (17:50)
[2023-12-24] MEDS ORDERED: EPINEPHrine INJ 1 MG/ML AMP IM PRN (17:50)
[2023-12-24] MEDS ORDERED: hydrOXYzine HCl 25 MG TAB PO PRN (17:50)
[2023-12-24] MEDS ORDERED: RIZATRIPTAN BENZOATE MLT 10 MG TAB PO PRN (17:56)
[2023-12-24] MEDS: NORTRIPTYLINE HCL 25 MG CAP PO SCH (19:30)
[2023-12-24] MEDS: FAMOTIDINE 20 MG TAB PO SCH (19:31)
[2023-12-24] MEDS: CETIRIZINE HCL 10 MG TABLET PO SCH (19:31)
[2023-12-24] MEDS: CEROVITE ADV FORMULA TAB PO SCH (19:31)
[2023-12-24] MEDS: QUEtiapine FUMARATE 25 MG TABLET PO SCH (19:31)
[2023-12-24] MEDS: HYDROmorphone INJ 1 MG/ML SYRINGE IV PRN (19:35)
[2023-12-24] MEDS: ALPRAZolam 0.5 MG TABLET PO SCH (21:23)
[2023-12-24] MEDS: PIPERACILLIN/TAZOBACTAM 4.5 GM in DEXTROSE 5% MINI-B 100 ML IV SCH (21:23)
[2023-12-25] MEDS: ACETAMINOPHEN 325 MG TAB PO PRN (01:28)
[2023-12-25 06:42] LABS: Basophils # (auto) 0.06 K/uL (0.00-0.20); Basophils % (auto) 0.4 %; Eosinophils # (auto) 0.22 K/uL (0.00-0.50); Eosinophils % (auto) 1.6 %; Hematocrit (blood only) 35.2 % (37.0-47.0); Hemoglobin 11.4 g/dl (12.0-16.0); Immature Granulocytes # (auto) 0.08 K/uL (0.01-0.20); Immature Granulocytes % (auto) 0.6 %; Lymphocytes # (auto) 1.71 K/uL (1.20-3.40); Lymphocytes % (auto) 12.3 %; Mean Corpuscular Hemoglobin 29.4 pg (25.0-34.0); Mean Corpuscular Hgb Conc 32.4 g/dL (32.0-36.0); Mean Corpuscular Volume 90.7 fL (80.0-100.0); Mean Platelet Volume 10.8 fL (9.4-12.4); Monocytes # (auto) 1.04 K/uL (0.11-0.59); Monocytes % (auto) 7.5 %; Neutrophils # (auto) 10.78 K/uL (1.40-6.50); Neutrophils % (auto) 77.6 %; Platelet Count 215 K/uL (130-400); RDW Coefficient of Variation 15.2 % (11.5-14.5); RDW Standard Deviation 50.7 fL (36.4-46.3); Red Blood Count 3.88 M/uL (4.20-5.40); White Blood Count 13.89 K/ul (4.8-10.8)
[2023-12-25 06:59] LABS: BUN Creatinine Ratio 10.3 (10-20); C Reactive Protein 12.46 mg/dl (0-0.5); Calcium 8.8 mg/dl (8.6-10.3); Creatinine Clr Calc Pharmacy 41.2 ml/min; Est GFR (African American) 44.8 ml/min; Est GFR (Non-African American) 38.6 ml/min; Potassium 4.9 mmol/L (3.5-5.1)
--- NOTE | 2023-12-25 07:50 | ENT Consultation ---
Date of Consultation December 25, 2023 Assessment & Plan (1) Cellulitis of postauricular region: (2) Mastoiditis of right side: Plan 48yF h/o cleft lip/palate and longstanding ETD s/p multiple tubes and remote R CWU mastoidectomy now admitted with R mastoiditis. Previous episode 06/2023, cx at [facility] grew E. Coli, treated with bedside I+D. Exam shows significant postauricular cellulitis and R parotitis. There is no obvious drainable fluid collection on exam today. Drainage in EAC suggests retained t-tube vs. TM perforation so I do not feel she needs an urgent tympanotomy. This was cultured today. We did discuss the possibility of underlying (now superinfected) cholesteatoma given imaging findings and history. Indication for previous mastoidectomy is not clear. -CT IAC with contrast to evaluate for drainable fluid collection. Likely will need pre-treatment given history of IV contrast allergy -Tobramycin - 5 drops to right ear BID x14 days -Continue IV abx -Consider ID evaluation -F/u culture -If she requires complex surgical care, discussed she will need to be transferr ed to a tertiary care center with otology expertise - History of Present Illness Attending Physician: Gricel Thorne MD History of Present Illness 48yF seen for evaluation of possible R mastoiditis. History of remote right canal wall up mastoidectomy at [facility] and multiple sets of tubes. Developed infection in her mastoidectomy bed 06/2023 treated with multiple I&D's and IV antibiotics at [facility]. Cx grew E. coli. Now with 1.5 days of progressive right postauricular pain. Presented to the ED, CT IAC without contrast showed per my read soft tissue inflammation of the right postauricular region, opacification of the prior mastoidectomy site and middle ear space. Ossicular erosion noted. WBC 14 --> 13. Patient denies otorrhea, vertigo. Overall hearing has decreased over the past several years but recently feels this has improved. No major improvement in discomfort since admission. Allergies Allergy/AdvReac Type Severity Reaction Status Date / Time ciprofloxacin [From Cipro] Allergy Intermediate Hives Verified 11/06/23 15:10 Iodinated Contrast Media Allergy Intermediate HIVES, Verified 11/06/23 15:10 DIARRHEA Sulfa (Sulfonamide Allergy Intermediate HIVES Verified 11/06/23 15:10 Antibiotics) Home Medications Medication Instructions Recorded Confirmed Type tambpccbfm-cscnyltkdjfjy-cevgthko 1 tab PO Q4H PRN headache #30 tabs 06/19/19 12/24/23 Rx 50 mg-325 mg-40 mg tablet cetirizine 10 mg tablet 10 mg PO BID #60 tabs 08/20/19 12/24/23 Rx hydroxyzine HCl 25 mg tablet 25 mg PO HS PRN Itching 02/23/20 12/24/23 History multivitamin-ferrous 1 tab PO HS 02/23/20 12/24/23 History fumarate-folic acid 18 mg-400 mcg tablet (Centrum Women) cyanocobalamin (vitamin B-12) 1,000 mcg subcut .COMPLEX 05/27/20 12/24/23 History 1,000 mcg/mL injection solution rizatriptan 10 mg disintegrating 10 mg PO .COMPLEX #10 tabs 11/24/21 12/24/23 Rx tablet vortioxetine 10 mg tablet 20 mg PO DAILY 11/24/21 12/24/23 History (Trintellix) epinephrine 0.3 mg/0.3 mL 0.3 mg (0.3 mL) IM Q4H PRN 03/20/23 12/24/23 Rx injection, auto-injector (EpiPen anaphylaxis #2 ea 2-Hugo) nortriptyline 25 mg capsule 75 mg (3 x 25 mg) PO HS #270 caps 07/08/23 12/24/23 Rx alprazolam 1 mg tablet 1 mg PO HS #30 tabs 08/19/23 12/24/23 History quetiapine 25 mg tablet (Seroquel) 75 mg PO HS 08/19/23 12/24/23 History famotidine 20 mg tablet 20 mg PO HS 10/21/23 12/24/23 History folic acid 1 mg tablet 1 mg PO DAILY 12/24/23 12/24/23 History ropinirole 0.25 mg tablet 0.5 mg PO HS PRN Other 12/24/23 12/24/23 History Patient History Medical History Scoliosis IBS (irritable bowel syndrome) Hearing loss Orthostatic hypotension 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, 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 prosthesis in place Surgical History H/O lithotripsy H/O pelvic surgery desmoid tumor, s/p chemo and surgery History of ear surgery TUBE INSERTED AND REMOVED H/O dilation and curettage H/O section History of bronchoscopy Family History Mother Diabetes Sinus disorder Grandmother (Maternal) Non Hodgkin's lymphoma Social History Smoking Status: Never smoker Second Hand Exposure: Yes; Do You Dip or Chew Tobacco: No; Hx Alcohol Use: Yes Alcohol type: wine Hx Substance Use: No Preferred Language: Spanish Communication Ability: Effective Visual Impairment: No Limitations [employer] Required: No Beliefs That Will Affect Care: None marital status: Current Living Situation: Alone, Spouse and Parent Current Living Situation Comment: one story home current occupational status: employed Other Information That Helps Us Care for You: No Feels Safe at Home: Yes Safety Concerns: Feels Safe At This Time Assistive Devices: None Review of Systems Review of Systems: A 10 point ROS is negative except as noted above Physical Exam Physical Exam: General: No acute distress, nonlabored respirations Face: normal facial motion Eyes: Extraocular motion is intact. Normal sclera and conjunctiva Ears: AD: External ear with erythema, edema of pinna and postauricular region, moderate proptosis without fluctuance or drainable fluid collection. Tender to palpation. EAC with yellow debris, cultured, and mild canal edema. No obvious granulation. Unable to visualize TM : External ear normal. EAC clear. TM with 20% anterosuperior perforation, +myringosclerosis +cleft lip s/p repair +cleft palate with obturator Edema/inflammation over R parotid gland, firm without fluctuance Neck: soft, no masses or lymphadenopathy. Mild cellulitis extending over tail of parotid on right Results & Data Vital Signs (Past 12 Hours) Vital Signs Temp Pulse Resp BP Pulse Ox O2 Del Method 12/24/23 22:25 136/88 12/24/23 21:34 36.8 C 102 H 16 99/65 L 96 Room Air PG Care Time/CCT Total # of Minutes Spent Total Time Spent with Patient: Total time spent is greater than 50% in coordination of care (as documented) at patient's floor/unit and/or counseling patient: Coding Level of Care Code 23170 IN/OBS CONSULT LVL 4,60M Diagnoses Cellulitis of postauricular region L03.811 Mastoiditis of right side H70.91
[2023-12-25] MEDS: FOLIC ACID 1 MG TAB PO SCH (08:46)
--- OUTSIDE RECORDS SUMMARY | 2023-12-25 09:26 | External Medical Summary | Summary of Care ---
Author Name Unknown Organization [facility] Address [address] [facility] [place] [address] Phone [phone] Care Team Providers Care Material Processor Name Role Phone Torres, Shaniquara Alfreda WEISS Primary Care Pro vider Reason for Referral * Precert (Within 24 hrs (call dept; emergent)) - Pending Review Specialty Diagnoses / Procedures Referred By Contac t Referred To Contact Radiology Diagnoses Vulvar cyst Procedures CT ABD/PELVIS WO IV/ORAL CONTRAST Erlinda Dawkins DO [address] [place] [id number] Referral ID Status Reason Start Date Expiration Date V isits Requested Visits Authorized [id number] Pending Review 11/27/[id number] Encounter Details Date Type Department Care Team (Late st Contact Info) Description 11/27/2023 Orders Only Access Center, [place] [address] [place] [address] Ext *DO NOT REMOVE THIS DEPARTMENT* [place] [id number] Requisition, External Radiology [address] [facility] [place] [id number] Vulvar cyst* Allergies Active Allergy Reactions Criticality Noted Date Comments Ciprofloxacin Other (Please comment) 08/11/2019 Redness/swelling at infusion site Sumatriptan Hives 03/16/2017 Redness and itching Iodinated Contrast Media High 01/01/2023 Hives and diarrhea Sulfa Antibiotics Hives High 04/17/2007 documented as of this encounter (statuses as of 11/27/2023) Medications Medication Sig Dispensed Refills Start Date End Date Status FOLIC ACID 400 MCG PO TABS one tab daily 0 Active LORATADINE 10 MG PO TABS one tab daily 0 Active CYANOCOBALAMIN 1000 MCG/ML IJ SOLN IM monthly 0 Active NORTRIPTYLINE HCL 25 MG PO CAPS 1 tab daily 0 Active FIORICET 50-325-40 MG PO TABS 1 OR 2 TABLETS EVERY 4 HOURS NEEDED for headache 20 Tab 0 10/18/2014 Active temazepam (RESTORIL) 15 MG Capsule Take 7.5 mg by mouth. 0 Active Meloxicam 10 MG CAPS 0 Acti ve ALPRAZolam 1 MG Oral Tablet Take 1 Tablet by mouth in the morning and 1 Tablet at noon and 1 Tablet before bedtime. 0 Active cholecalciferol, VIT D3, (VITAMIN D3) 1000 UNITS Tablet Take 2 Tabs by mouth daily. 30 Tab 0 08/16/2019 Active EPINEPHrine, anaphylaxis, (EPI-PEN) 0.3 MG/0.3ML SOAJ injection For a severe reaction: Inject in outer thigh following instructions on package and go to the Emergency room. 2 Box Dosing Unit 3 08/15/2019 Active albuterol sulfate (PROVENTIL) (2.5 MG/3ML) 0.083% nebulizer solution Inhale 1 Vial via nebulizer every 4 hours as needed for Wheezing. 25 Vial 0 09/13/2019 Active Additional Information Patient not taking.Reported on 01/01/2023 Albuterol Sulfate (PROAIR HFA) 108 (90 Base) MCG/ACT AERS Inhale 2 Puffs by mouth every 4 hours as needed for Cough. 1 Inhaler 0 09/13/2019 Active Additional Information Patient not taking.Reported on 01/01/2023 EPINEPHrine, anaphylaxis, (AUTOINJECTOR) 0.3 MG/0.3ML SOAJ For a severe reaction: Inject in outer thigh following instructions on package and go to the Emergency room. 1 Box Dosing Unit 3 09/13/2019 Active predniSONE 10 MG Oral Tablet (Deltasone)Indicatio ns:Bronchitis, complicated Take 2 tab by mouth once daily x 5 days. Take with food in the AM. 10 Tablet 0 09/23/2021 Active Additional Information Patient not taking.Reported on 01/01/2023 Albuterol Sulfate HFA 108 (90 Base) MCG/ACT Inhalation Aerosol SolutionIndications: Bronchitis, complicated Inhale by mouth 2 Puffs every 6 hours as needed for Wheezing. 18 g 2 09/23/2021 Active Additional Information Patient not taking.Reported on 01/01/2023 rOPINIRole HCl 0.25 MG Oral Tablet (Requip) Take 2 Tablets by mouth at bedtime. 0 10/15/2022 Active Rizatriptan Benzoate 10 MG Oral Tablet Disintegrating 1 Tablet. 0 11/24/2021 Active Nitrofurantoin Monohyd Macro 100 MG Oral Capsule (Macrobid) 1 Capsule. 0 10/24/2022 Active Vortioxetine HBr 10 MG Oral Tablet (Trintellix) 2 Tablets. 0 11/24/2021 Active Famotidine 20 MG Oral Tablet (Pepcid) Take 1 Tablet by mouth every night at bedtime. 34 Tablet 0 10/18/2023 Active Ondansetron 4 MG Oral Tablet Disintegrating (Zofran) Place 1 Tablet on tongue every 8 hours as needed for Nausea. dissolve on tongue. 15 Tablet 0 10/18/2023 Active documented as of this encounter (statuses as of 11/27/2023) Active Problems Problem Noted Date Diagnosed Date Anaphylaxis 08/11/2019 Leukocytosis 08/11/2019 NEOPLASM (BENIGN) PELVIS 02/19/2011 Multiple joint pain 02/07/2011 KATERIN (acute kidney injury) Nephrolithiasis Idiopathic hypotension documented as of this encounter (statuses as of 11/27/2023) Immunizations Name Administration Dates Next Due PPD 02/03/2016,04/17/2007 documented as of this encounter Social History Tobacco Use Types Packs/Day Years Used Date Smoking Tobacco: Never Smokeless Tobacco: Never Alcohol Use Standard Drinks/Week Comments Not Currently 0 (1 standard drink = 0.6 oz pur e alcohol) Sex and Gender Information Value Date Recorded Sex Assigned at Not on file Gender Identity Not on file Sexual Orientation Not on file Job Start Date Occupation Industry Not on file Not on file Not on file documented as of this encounter Functional Status Functional Status Response Date of Assess ment Are you deaf or do you have serious difficulty h earing? No 08/11/2019 Are you blind or do you have serious difficulty seeing, even when wearing glasses? No 08/11/2019 Do you have serious difficul ty walking or climbing stairs? (5 years old or older) No 08/11/2019 Do you have difficulty dress ing or bathing? (5 years old or older) No 08/11/2019 Because of a physical, menta l, or emotional condition, do you have difficulty doing errands alone such as visiting a doctor s office or shopping? (15 years old or older) No 08/11/20 19 Cognitive Status Response Date of Assessm ent Because of a physical, menta l, or emotional condition, do you have serious difficulty concentrating, remembering, or making decisions? (5 years old or older) No 08/11/2019 documented as of this encounter Plan of Treatment Scheduled Orders Name Type Priority Associated Diagnoses Orde r Schedule CT ABD/PELVIS WO IV/ORAL CONTRAST Medical Imaging STAT Vulvar cyst Expected: 11/27/2023, Expires: 12/26/2024 Health Maintenance Due Date Last Done Comments Lipid Panel 1974 Depression Screening 1986 HIV Screening 1989 Hepatitis C Screening 1992 DTaP,Tdap,and Td Vaccines (1 - Tdap) 1993 Hepatitis B (1 of 3 - 19+ 3-dose series) 1993 HPV/Co-Test 2004 Cologuard 2019 Colonoscopy 2019 Colorectal Cancer Screening 2019 Fecal Occult Blood Test 2019 Sigmoidoscopy 2019 COVID-19 Vaccine ( season) 2023 06/21/2021, 10/21/2020 Cervical Cancer Screening 12/30/2023 Pap Smear 12/30/2023 12/29/2020, 10/11/2014 Influenza Vaccine (FLU shot) (Season Ended) 2024 Mammogram 11/06/2024 11/07/2023, 07/14, 12/13/2020, Additional history exists GARDASIL-HPV IMMUNIZATION SERIES Aged Out No longer eligible based on patient's age to complete this topic MENINGOCOCCAL (MENACTRA/MENVEO) Aged Out No longer eligible based on patient's age to complete this topic Pneumococcal Vaccine: Pediatrics (0 to 5 Years) and At-Risk Patients (6 to 64 Years) Aged Out No longer eligible based on patient's age to complete this topic documented as of this encounter Medical Devices Not on filedocumented as of this encounter Visit Diagnoses Diagnosis Vulvar cyst- Primary Other specified noninflammatory disorder of vulva and perineum documented in this encounter Advance Directives Latest Code Status on File Code Status Date Activated Date Inactivated Comments Full Code 08/11/2019 1:34 AM 08/15/2019 3:13 PM This order reflects the patients wishes and were consensually agreed upon. Care Teams Material Processor Relationship Specialty Start Date End Date Shaniqua Macdonald CRNP [address] [facility] [place] [id number] PCP - General Nurse Practitioner 07/04/23 documented as of this encounter
--- OUTSIDE RECORDS SUMMARY | 2023-12-25 09:26 | External Medical Summary | Summary of Care ---
Author Name Unknown Organization [facility] Address [address] [place] [address] Phone [phone] Care Team Providers Care Head Of Maintenance Name Role Phone Shaniqua Macdonald Primary Care Pro vider Reason for Referral * Precert (Within 24 hrs (call dept; emergent)) - Authorized Specialty Diagnoses / Procedures Referred By Contac t Referred To Contact Radiology Diagnoses Vulvar cyst Procedures CT ABD/PELVIS WO IV/ORAL CONTRAST CT ABD/PELVIS WO IV CONTRAST - W ORAL CONTRAST Erlinda Dawkins DO [address] [place] [id number] Referral ID Status Reason Start Date Expiration Date V isits Requested Visits Authorized [id number] Authorized Precert 11/27/2023 05/25/[phone] Reason for Visit * Precert (Within 24 hrs (call dept; emergent)) - Authorized Specialty Diagnoses / Procedures Referred By Contac t Referred To Contact Radiology Diagnoses Vulvar cyst Procedures CT ABD/PELVIS WO IV/ORAL CONTRAST CT ABD/PELVIS WO IV CONTRAST - W ORAL CONTRAST Erlinda Dawkins DO [address] [place] [id number] Referral ID Status Reason Start Date Expiration Date V isits Requested Visits Authorized [id number] Authorized Precert 11/27/2023 05/25/[phone] Encounter Details Date Type Department Care Team (Latest Contact Info) Description 11/27/2023 3:59 PM EDT - 11/27/2023 11:59 PM EDT Hospital Encounter Radiology, [facility] [address] [place] [place] [phone] Arrived Discharge Disposition: Home - Self Care Allergies Active Allergy Reactions Criticality Noted Date Comments Ciprofloxacin Other (Please comment) 08/11/2019 Redness/swelling at infusion site Sumatriptan Hives 03/16/2017 Redness and itching Iodinated Contrast Media High 01/01/2023 Hives and diarrhea Sulfa Antibiotics Hives High 04/17/2007 documented as of this encounter (statuses as of 11/28/2023) Medications Medication Sig Dispensed Refills Start Date [...] as of this encounter (statuses as of 11/28/2023) Active Problems Problem Noted Date Diagnosed Date Anaphylaxis 08/11/2019 Leukocytosis 08/11/2019 NEOPLASM (BENIGN) PELVIS 02/19/2011 Multiple joint pain 02/07/2011 KATERIN (acute kidney injury) Nephrolithiasis Idiopathic hypotension documented as of this encounter (statuses as of 11/28/2023) Immunizations Name Administration Dates Next Due PPD [...] as of this encounter Plan of Treatment Health Maintenance Due Date Last Done Comments [...] Not on filedocumented as of this encounter Procedures Procedure Name Priority Date/Time Associated Diagnosis Comments CT ABD/PELVIS WO IV/ORAL CONTRAST STAT 11/27/2023 4:13 PM EDT Vulvar cyst documented in this encounter Results * CT ABD/PELVIS WO IV/ORAL CONTRAST (11/27/2023 4:13 PM EDT) Anatomical Region Laterality Modality Body, Abdomen, Pelvis Computed T omography 11/27/2023 5:38 PM EDT Impressions 11/27/2023 5:35 PM EDT IMPRESSION 3.3 cm rounded structure left perineal region with high attenuation. Differential could include complex cyst perhaps Bartholin's gland cyst, hemorrhagic cyst, or solid mass lesion. Narrative 11/27/2023 5:35 PM EDT EXAM EXAM: CT ABD/PELVIS WO IV/ORAL CONTRAST DATE and TIME: 11/27/2023 4:13 pm HISTORY CLINICAL INFORMATION: vulvar cyst TECHNIQUE Oral Contrast: Or oral contrast was not administered. IV Contrast: No IV Contrast used Abdomen/Pelvis: Coronal and sagittal reformatted images. COMPARISON 10/18/2023. 03/18/2020. FINDINGS LOWER CHEST: HEART(visualized): Unremarkable LUNG BASES: Unremarkable ABDOMEN/PELVIS: LINES AND DEVICES: None LIVER: Unremarkable BILE DUCTS: Unremarkable GALLBLADDER: Contracted. PANCREAS: Unremarkable SPLEEN: Unremarkable ADRENALS: Unremarkable KIDNEYS/URETERS: 5 mm nonobstructing calculus lower pole left kidney BLADDER: Unremarkable BOWEL: Unremarkable LYMPH NODES: Unremarkable VESSELS: Unremarkable REPRODUCTIVE ORGANS: Unremarkable PERITONEUM/RETROPERITONEUM: Unremarkable ABDOMINAL WALL/SOFT TISSUES: High attenuating rounded structure of left perineal region measuring 3 x 3 x 3.3 cm. Hounsfield units are 70, with somewhat heterogeneous appearance. Very small fat containing umbilical hernia. BONES: Multilevel disc and bony degenerative changes lumbar spine. Procedure Note Erwin Morton MD - 11/27/2023 EXAM EXAM: CT ABD/PELVIS WO IV/ORAL CONTRAST DATE and TIME: 11/27/2023 4:13 pm HISTORY CLINICAL INFORMATION: vulvar cyst TECHNIQUE Oral Contrast: Or oral contrast was not administered. IV Contrast: No IV Contrast used Abdomen/Pelvis: Coronal and sagittal reformatted images. COMPARISON 10/18/2023. 03/18/2020. FINDINGS LOWER CHEST: HEART(visualized): Unremarkable LUNG BASES: Unremarkable ABDOMEN/PELVIS: LINES AND DEVICES: None LIVER: Unremarkable BILE DUCTS: Unremarkable GALLBLADDER: Contracted. PANCREAS: Unremarkable SPLEEN: Unremarkable ADRENALS: Unremarkable KIDNEYS/URETERS: 5 mm nonobstructing calculus lower pole left kidney BLADDER: Unremarkable BOWEL: Unremarkable LYMPH NODES: Unremarkable VESSELS: Unremarkable REPRODUCTIVE ORGANS: Unremarkable PERITONEUM/RETROPERITONEUM: Unremarkable ABDOMINAL WALL/SOFT TISSUES: High attenuating rounded structure of leftperineal region measuring 3 x 3 x 3.3 cm. Hounsfield units are 70, withsomewhat heterogeneous appearance. Very small fat containing umbilicalhernia. BONES: Multilevel disc and bony degenerative changes lumbar spine. IMPRESSION IMPRESSION 3.3 cm rounded structure left perineal region with high attenuation.Differential could include complex cyst perhaps Bartholin's gland cyst,hemorrhagic cyst, or solid mass lesion. Erlinda [facility] DO RAD CT documented in this encounter Visit Diagnoses Diagnosis Vulvar cyst Other specified noninflammatory disorder of vulva and perineum documented in this encounter Advance Directives Latest Code Status on File Code Status Date Activated Date Inactivated Comments Full Code 08/11/2019 1:34 AM 08/15/2019 3:13 PM This order reflects the patients wishes and were consensually agreed upon. Care Teams Head Of Maintenance Relationship Specialty Start Date End Date Shaniqua Macdonald CRNP [address] [place], [place] [phone] PCP - General Nurse Practitioner 07/04/23 documented as of this encounter
--- NOTE | 2023-12-25 10:52 | Hospitalist Progress Note ---
Date of Service December 25, 2023 Assessment & Plan (1) Mastoiditis of right side: Plan: Recurrent R ear infection - s/p distant mastoidectomy many years ago - hx of [place]itis [place] [facility] [place] - On admission,CT temporal bone showed no change compared to previous study done in June 2023. -Findings suggestive of right-sided otitis externa with periauricular soft tissue prominence no drainable fluid collections. -Will continue empiric IV Zosyn -Await blood cultures. - ENT consulted. Dr. Bailon [place] [facility] [place] Dr. Hastings ENT who reviewed the imaging. Did not feel transfer was needed. Is on until Saturday, and if she clinically worsened would be happy to accept for transfer at that time but recommends admit here at this time with Zosyn and ID consultation and no surgical intervention was recommended. Dr. Bailon aware and OK to consult with medical admission. 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 Plan DVT prophylaxis: SCDs, ambulate Diet: Admission and Anticipated Discharge Date Admission Date: December 24, 2023 Subjective Patient seen and examined, still complains of a lot of pain in the right ear but no drainage Review of Systems Review of Systems: All systems reviewed are negative, apart from the ones contained in the history. Physical Exam Physical Exam: The patient is awake, alert and oriented 3, well developed and well nourished, normocephalic and atraumatic, lying in bed and in no acute distress. HEENT--PERRL, EOMI, right ear swelling Neck--supple. No JVD. No bruits. Thyroid normal, trachea midline, no adenopathy. Heart--normal S1 and S2. No murmurs, rubs or gallops. Lungs--clear bilaterally, no respiratory distress, no accessory muscle use. Abdomen--normal bowel sounds and soft. Extremities--no cyanosis or clubbing. No edema. Dermatologic--normal skin turgor, normal color, no abnormal lymph nodes, no rash. Neurologic--cranial nerves II through XII grossly intact. Rheumatologic--normal range of motion. Psychiatric--normal affect. Results & Data Results & Data Vital Signs (Past 12 Hours) Vital Signs Temp Pulse Resp BP Pulse Ox O2 Del Method 12/25/23 07:58 98.1 F 74 16 115/73 98 Room Air PG Care Time/CCT Total # of Minutes Spent Total Time Spent with Patient: Total time spent is greater than 50% in coordination of care (as documented) at patient's floor/unit and/or counseling patient: Coding Level of Care Code 37229 SUB INP/OBS CARE 2/35MIN Diagnoses Mastoiditis of right side H70.91 Anxiety F41.9 Idiopathic anaphylaxis, subsequent encounter T78.2XXD Encounter type: subsequent encounter Mast cell disorder D47.09 Cleft lip Q36.9 Time Spent (min) 35 (3) Idiopathic anaphylaxis Encounter type: subsequent encounter Qualified Code(s): T78.2XXD - Anaphylactic shock, unspecified, subsequent encounter
[2023-12-25] MEDS: diphenhydrAMINE Capsule 25 MG CAP PO ONE (13:14)
[2023-12-25] MEDS: OPTIRAY 320 100ml IV ONE (13:39)
--- NOTE | 2023-12-25 14:06 | CT Scan Report ---
CT IAC BI w con HISTORY: 48 years-old Female right mastoiditis, r/o abscess COMPARISON: TECHNIQUE: FINDINGS: The imaged intracranial structures demonstrate no acute abnormality. Chronic-appearing bony defects i n the left maxillary alveolar ridge. Leftward bowing and spurring of the nasal septum. Paranasal sinu ses are generally clear. Unremarkable orbits. LEFT: Mastoid air cells are clear. The middle ear cavity is clear. Middle ear ossicles and tympanic m embrane appear normal. The scutum is sharp. Intact tegmen tympani. Normal course of the 7th cranial n erve. Normal cochlea and semicircular canals. RIGHT: Subcutaneous edema/soft tissue thickening is again noted in the right periauricular tissues, m ost pronounced superiorly and posteriorly contiguous with the right mastoidectomy site. Again, the ma stoidectomy site is completely opacified. Postcontrast images demonstrate ill-defined peripherally en hancing hypodensity within this distribution was 149 series 4 measuring 2.9 x 1.7 x 1.8 cm. Unchanged osseous irregularity at the mastoidectomy defect, likely a postoperative basis. Mild thicke benedicto within the cartilaginous portion of the external auditory canal redemonstrated. The right tympan ic membrane is again not identified, possibly absent or retracted. The right middle ear cavity is par tially opacified. There is a partial ossicular replacement prosthesis noted which is in the posterior aspect of the middle ear cavity. The residual malleus and incus appear to be irregular consistent wi th partial erosion. The 7th cranial nerve demonstrates a normal course. No evidence for inner ear dys plasia. IMPRESSION: 1. No significant change compared to the study from 07/06/2023. 2. Findings again suggestive of right-sided otitis externa with periauricular soft tissue prominence/ cellulitis contiguous with the mastoidectomy site centered around a 2.9 cm peripherally enhancing phl egmon versus abscess. 3. Right middle ear effusion with chronic bony irregularity of the middle ear ossicles. 4. Normal appearance of the left temporal bone. ACT 112: Negative or not required by law. The above report was generated using voice recognition software. It may contain grammatical, syntax o r spelling errors. Electronically signed by: Mazin Au M.D. 12/25/2023 2:05 PM
[2023-12-25] MEDS: PIPERACILLIN/TAZOBACTAM 4.5 GM in DEXTROSE 5% MINI-B 100 ML IV SCH (18:14)
[2023-12-26] MEDS ORDERED: diphenhydrAMINE Capsule 25 MG CAP PO ONE (00:19)
[2023-12-26 05:45] LABS: Basophils # (auto) 0.04 K/uL (0.00-0.20); Basophils % (auto) 0.4 %; Eosinophils # (auto) 0.33 K/uL (0.00-0.50); Eosinophils % (auto) 2.9 %; Hematocrit (blood only) 36.1 % (37.0-47.0); Hemoglobin 11.7 g/dl (12.0-16.0); Immature Granulocytes # (auto) 0.05 K/uL (0.01-0.20); Immature Granulocytes % (auto) 0.4 %; Lymphocytes # (auto) 1.68 K/uL (1.20-3.40); Mean Corpuscular Hemoglobin 29.1 pg (25.0-34.0); Mean Corpuscular Hgb Conc 32.4 g/dL (32.0-36.0); Mean Corpuscular Volume 89.8 fL (80.0-100.0); Mean Platelet Volume 10.6 fL (9.4-12.4); Monocytes # (auto) 0.89 K/uL (0.11-0.59); Neutrophils % (auto) 73.3 %; Platelet Count 215 K/uL (130-400); RDW Coefficient of Variation 15.2 % (11.5-14.5); RDW Standard Deviation 50.1 fL (36.4-46.3); Red Blood Count 4.02 M/uL (4.20-5.40); White Blood Count 11.19 K/ul (4.8-10.8)
[2023-12-26 06:02] LABS: BUN Creatinine Ratio 9.4 (10-20); Creatinine Clr Calc Pharmacy 37.6 ml/min; Est GFR (African American) 40.1 ml/min; Est GFR (Non-African American) 34.6 ml/min; Potassium 4.6 mmol/L (3.5-5.1)
--- NOTE | 2023-12-26 07:50 | Ears,Nose,Throat Progress Note ---
Date of Service December 26, 2023 Assessment & Plan (1) Mastoiditis of right side: (2) Cellulitis of postauricular region: (3) Parotitis: Plan 48yF h/o cleft lip/palate and longstanding ETD s/p multiple tubes and remote R CWU mastoidectomy now admitted with R mastoiditis. Previous episode 06/2023, cx at [facility] grew E. Coli, treated with bedside I+D. Exam shows significant postauricular cellulitis and R parotitis. There is no obvious drainable fluid collection on exam today, but CT IAC with contrast showed developing abscess per my read. Exam without t-tube or perforation. I have recommended right myringotomy and tube placement with incision and drainage right postauricular abscess. The risks and benefits including but not limited to bleeding, infection, tube otorrhea, early tube blockage or extrusion requiring replacement, perforation, hearing loss were discussed in detail and the patient elected to proceed with surgery. Informed consent was obtained. We did discuss the possibility of underlying (now superinfected) cholesteatoma given imaging findings and history. Indication for previous mastoidectomy is not clear. -NPO, IVF -Tobramycin - 5 drops to right ear BID x14 days -Continue IV abx -Consider ID evaluation -F/u culture -If she requires complex surgical care, discussed she will need to be transferred to a tertiary care center with otology expertise Admission and Anticipated Discharge Date Admission Date: December 24, 2023 Subjective RULA o/n. Ongoing R otalgia and swelling/tenderness over R parotid/neck. Physical Exam Physical Exam: General: No acute distress, nonlabored respirations Face: normal facial motion Eyes: Extraocular motion is intact. Normal sclera and conjunctiva Ears: AD: External ear with erythema, edema of pinna and postauricular region, moderate proptosis without fluctuance or drainable fluid collection. Very tender to palpation. EAC with yellow debris, suctioned at bedside, and mild to moderate canal edema. No obvious granulation. Visualized TM appears intact, opacified. No tube or perforation noted. +cleft lip s/p repair +cleft palate with obturator Edema/inflammation over R parotid gland, firm without fluctuance Neck: soft, no masses or lymphadenopathy. Mild cellulitis extending over tail of parotid on right and neck Results & Data Vital Signs (Past 12 Hours) Vital Signs Temp Pulse Resp BP Pulse Ox O2 Del Method 12/26/23 07:34 36.9 C 95 H 16 104/72 98 Room Air 12/26/23 07:12 36.8 C 99 H 16 104/70 94 Room Air 12/25/23 21:35 36.7 C 96 H 16 124/74 97 Room Air PG Care Time/CCT Total # of Minutes Spent Total Time Spent with Patient: Total time spent is greater than 50% in coordination of care (as documented) at patient's floor/unit and/or counseling patient: Coding Level of Care Code 23048 SUB INP/OBS CARE 3/50MIN Diagnoses Mastoiditis of right side H70.91 Cellulitis of postauricular region L03.811 Parotitis K11.20
--- NOTE | 2023-12-26 10:54 | Hospitalist Progress Note ---
Date of Service December 26, 2023 Assessment & Plan (1) Mastoiditis of right side: Plan: Recurrent R ear infection - s/p distant mastoidectomy many years ago - [place] [facility] [place] - On admission,CT temporal bone showed no change compared to previous study done in June 2023. -Findings suggestive of right-sided otitis externa with periauricular soft tissue prominence no drainable fluid collections. - However, CT internal auditory canal with contrast showed evidence of a developing abscess. Plan is for ENT to take her to the OR for possible myringotomy and tube placement. -Will continue empiric IV Zosyn -Await intra operative cultures. 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 Plan DVT prophylaxis: SCDs, ambulate Diet: Admission and Anticipated Discharge Date Admission Date: December 24, 2023 Subjective Patient seen and examined, still complaining of worsening right ear pain Review of Systems Review of Systems: All systems reviewed are negative, apart from the ones contained in the history. Physical Exam Physical Exam: The patient is awake, alert and oriented 3, well developed and well nourished, normocephalic and atraumatic, lying in bed and in no acute distress. HEENT--PERRL, EOMI, right ear swelling Neck--supple. No JVD. No bruits. Thyroid normal, trachea midline, no adenopathy. Heart--normal S1 and S2. No murmurs, rubs or gallops. Lungs--clear bilaterally, no respiratory distress, no accessory muscle use. Abdomen--normal bowel sounds and soft. Extremities--no cyanosis or clubbing. No edema. Dermatologic--normal skin turgor, normal color, no abnormal lymph nodes, no rash. Neurologic--cranial nerves II through XII grossly intact. Rheumatologic--normal range of motion. Psychiatric--normal affect. Results & Data Results & Data Vital Signs (Past 12 Hours) Vital Signs Temp Pulse Resp BP Pulse Ox O2 Del Method 12/26/23 07:34 98.4 F 95 H 16 104/72 98 Room Air 12/26/23 07:12 98.2 F 99 H 16 104/70 94 Room Air PG Care Time/CCT Total # of Minutes Spent Total Time Spent with Patient: Total time spent is greater than 50% in coordination of care (as documented) at patient's floor/unit and/or counseling patient: Coding Level of Care Code 39371 SUB INP/OBS CARE 2/35MIN Diagnoses Mastoiditis of right side H70.91 Anxiety F41.9 Idiopathic anaphylaxis, subsequent encounter T78.2XXD Encounter type: subsequent encounter Mast cell disorder D47.09 Cleft lip Q36.9 Time Spent (min) 35 (3) Idiopathic anaphylaxis Encounter type: subsequent encounter Qualified Code(s): T78.2XXD - Anaphylactic shock, unspecified, subsequent encounter
--- NOTE | 2023-12-26 10:55 | Anesthesiology Consultation ---
Date of Service December 26, 2023 Assessment & Plan Chart Review Chart Review: Acceptable Risk for Surgery and Patient NOT seen in Pre Admission Testing History Surgery Operation Date: 12/26/23 08:45 Proposed Procedures p Right Myringotomy and Tube Insertion - Cornelius Bailon MD s with Right Postauricular Abscess Incision and Drainage - Cornelius Bailon MD Height/Weight Height: 5 ft 4 in Weight: 67.4 kg Allergies Allergy/AdvReac Type Severity Reaction Status Date / Time ciprofloxacin [From Cipro] Allergy Intermediate Hives Verified 11/06/23 15:10 Iodinated Contrast Media Allergy Intermediate HIVES, Verified 11/06/23 15:10 DIARRHEA Sulfa (Sulfonamide Allergy Intermediate HIVES Verified 11/06/23 15:10 Antibiotics) Medications Home Medications Medication Instructions Recorded Confirmed Last Taken evubbaeovo-[id number] 1 tab PO Q4H PRN headache #30 tabs 06/19/19 12/24/23 03/21/20 50 mg-325 mg-40 mg tablet cetirizine 10 mg tablet 10 mg PO BID #60 tabs 08/20/19 12/24/23 04/10/20 20:30 hydroxyzine HCl 25 mg tablet 25 mg PO HS PRN Itching 02/23/20 12/24/23 03/12/20 20:00 multivitamin-ferrous 1 tab PO HS 02/23/20 12/24/23 04/10/20 20:30 fumarate-folic acid 18 mg-400 mcg tablet (Centrum Women) cyanocobalamin (vitamin B-12) 1,000 mcg subcut .COMPLEX 05/27/20 12/24/23 Unknown 1,000 mcg/mL injection solution rizatriptan 10 mg disintegrating 10 mg PO .COMPLEX #10 tabs 11/24/21 12/24/23 Unknown tablet vortioxetine 10 mg tablet 20 mg PO DAILY 11/24/21 12/24/23 Unknown (Trintellix) epinephrine 0.3 mg/0.3 mL 0.3 mg (0.3 mL) IM Q4H PRN 03/20/23 12/24/23 Unknown injection, auto-injector (EpiPen anaphylaxis #2 [id number]) nortriptyline 25 mg capsule 75 mg (3 x 25 mg) PO HS #270 caps 07/08/23 12/24/23 Unknown alprazolam 1 mg tablet 1 mg PO HS #30 tabs 08/19/23 12/24/23 Unknown quetiapine 25 mg tablet (Seroquel) 75 mg PO HS 08/19/23 12/24/23 Unknown famotidine 20 mg tablet 20 mg PO HS 10/21/23 12/24/23 Unknown folic acid 1 mg tablet 1 mg PO DAILY 12/24/23 12/24/23 Unknown ropinirole 0.25 mg tablet 0.5 mg PO HS PRN Other 12/24/23 12/24/23 Unknown Active Medications Generic Name Dose Route Start Last Admin Trade Name Freq PRN Reason Stop Dose Admin Acetaminophen 650 mg 12/24/23 16:41 12/25/23 17:58 Acetaminophen 325 Mg Tab PO 01/23/24 16:40 650 mg Q4H PRN Administration Fever/Mild Pain (Pain 1,2,3) Alprazolam 1 mg 12/24/23 21:00 12/25/23 20:20 Alprazolam 0.5 Mg Tablet PO 01/23/24 20:59 1 mg HS KISHAN Administration Cetirizine HCl 10 mg 12/24/23 21:00 12/26/23 09:08 Cetirizine Hcl 10 Mg Tablet PO 01/23/24 20:59 10 mg BID KISHAN Administration Famotidine 20 mg 12/24/23 21:00 12/25/23 20:20 Famotidine 20 Mg Tab PO 01/23/24 20:59 20 mg HS KISHAN Administration Folic Acid 1 mg 12/25/23 09:00 12/26/23 09:08 Folic Acid 1 Mg Tab PO 01/24/24 08:59 1 mg DAILY KISHAN Administration Hydromorphone HCl 1 mg 12/24/23 16:41 12/26/23 09:02 Hydromorphone Inj 1 Mg/Ml Syringe IV 01/07/24 16:40 1 mg Q4H PRN Administration Severe Pain (7,8,9,10) on NRS Piperacillin Sod/Tazobactam 100 mls @ 25 mls/hr 12/25/23 18:00 12/26/23 09:04 Sod 4.5 gm/ Dextrose IV 01/03/24 17:59 25 mls/hr Q8H KISHAN Administration Protocol Miscellaneous 1 each 12/24/23 18:00 12/26/23 09:01 Trintellix~Order Awaiting Action N/A 01/23/24 17:59 Not Given QS KISHAN Multivitamins/Minerals 1 tab 12/24/23 21:00 12/25/23 20:55 Cerovite Adv Formula Tab PO 01/23/24 20:59 1 tab HS KISHAN Administration Nortriptyline HCl 75 mg 12/24/23 21:00 12/25/23 20:20 Nortriptyline Hcl 25 Mg Cap PO 01/23/24 20:59 75 mg HS KISHAN Administration Quetiapine Fumarate 75 mg 12/24/23 21:00 12/25/23 20:20 Quetiapine Fumarate 25 Mg Tablet PO 01/23/24 20:59 75 mg HS KISHAN Administration Past Medical History Medical History (Updated 12/26/23 @ 10:54 by Roberto Carlos Bullock DO) Middle ear effusion Cellulitis of postauricular region Hyperlipidemia Depression Rx Trintellix, follows with Dr Stiles and therapist Anxiety Alprazolam 1 mg PRN Scoliosis IBS (irritable bowel syndrome) Hearing loss Orthostatic hypotension 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, 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 prosthesis in place Past Family History Family History Mother Diabetes Sinus disorder Grandmother (Maternal) Non Hodgkin's lymphoma Past Surgical History Surgical History H/O lithotripsy H/O pelvic surgery desmoid tumor, s/p chemo and surgery History of ear surgery TUBE INSERTED AND REMOVED H/O dilation and curettage H/O section History of bronchoscopy Social History Smoking Status: Never smoker Do You Dip or Chew Tobacco: No Hx Alcohol Use: Yes Alcohol type: wine alcohol intake frequency: holidays/special occasions only Hx Substance Use: No substance use type: does not use Physical Exam Vital Signs Last Vital Signs Temp 36.9 C 12/26/23 07:34 Pulse 95 H 12/26/23 07:34 Resp 16 12/26/23 07:34 BP 104/72 12/26/23 07:34 Pulse Ox 98 12/26/23 07:34 O2 Del Method Room Air 12/26/23 07:34 Testing Laboratory Results 12/26/23 05:30 12/26/23 05:30 Urine Color Yellow 12/24/23 13:00 Urine Appearance Clear (Clear) 12/24/23 13:00 Urine pH 8.0 (4.5-7.5) H 12/24/23 13:00 Ur Specific [place] 1.010 (1.000-1.030) 12/24/23 13:00 Urine Protein Negative (Negative) 12/24/23 13:00 Urine Glucose (UA) Negative (Negative) 12/24/23 13:00 Urine Ketones Negative (Negative) 12/24/23 13:00 Urine Nitrite Negative (Negative) 12/24/23 13:00 Ur Leukocyte Esterase 1+ (Negative) H 12/24/23 13:00 Urine WBC (Auto) 6-10 /hpf (0-5) H 12/24/23 13:00 Urine RBC (Auto) 0-2 /hpf (0-2) 12/24/23 13:00 U Hyaline Cast (Auto) 0-2 /lpf (0-2) 12/24/23 13:00 U Epithel Cells (Auto) 6-10 /hpf (0-2) H 12/24/23 13:00 Urine Bacteria (Auto) None Seen (None Seen) 12/24/23 13:00 12/24/23 13:10 Aerobic Blood Culture - Preliminary Blood No growth in Aerobic bottle after 24 hours. Anaerobic Blood Culture - Preliminary No growth in Anaerobic bottle after 24 hours. 12/24/23 13:00 Aerobic Blood Culture - Preliminary Blood No growth in Aerobic bottle after 24 hours. Anaerobic Blood Culture - Preliminary No growth in Anaerobic bottle after 24 hours. 12/24/23 13:00 Urine Culture - Preliminary Urine,Clean Catch Pin-point growth present, reincubating.
[2023-12-26] MEDS ORDERED: fentaNYL citrate PF 100 MCG/2 ML VIAL IV PRN (15:28)
[2023-12-26] MEDS ORDERED: HYDROmorphone INJ 1 MG/ML SYRINGE IV PRN (15:28)
[2023-12-26] MEDS ORDERED: ATROPINE SULFATE 0.1 MG/ML 10ML SYR IV PRN (15:28)
[2023-12-26] MEDS ORDERED: ePHEDrine sulfate 50 MG/ML AMP IV PRN (15:28)
[2023-12-26] MEDS ORDERED: ONDANSETRON INJ 2 MG/ML 2 ML VIAL IV PRN (15:28)
[2023-12-26] MEDS: LACTATED RINGER'S 1,000 ML IV SCH (15:29)
[2023-12-26] MEDS ORDERED: LIDOCAINE 2% 2 ML VIAL/AMP(20MG/ML) INFIL ONE (15:37)
[2023-12-26] MEDS ORDERED: MIDAZOLAM HCL 1 MG/ML 2ML VIAL ONE (15:37)
[2023-12-26] MEDS ORDERED: fentaNYL citrate PF 100 MCG/2 ML VIAL ONE (15:37)
[2023-12-26] MEDS ORDERED: SUCCINYLCHOLINE 100MG/5ML SYR IV ONE (15:37)
[2023-12-26] MEDS ORDERED: PROPOFOL IV EMULSION 10 MG/ML 20 ML VIAL IV ONE (15:37)
[2023-12-26] MEDS ORDERED: ePHEDrine sulfate 50 MG/5 ML SYR ONE (16:26)
[2023-12-26] MEDS: OXYMETAZOLINE 0.05% 30 ML BTL ONE (16:53)
[2023-12-26] MEDS: BACITRACIN OINT 14 GM TUBE ONE (16:54)
[2023-12-26] MEDS: OFLOXACIN 0.3% 75 DROPS/5 ML BTL ONE (16:54)
--- NOTE | 2023-12-26 17:04 | Operative Report ---
PG Post Operative Report Pre & Post Diagnosis Operation Date: 12/26/23 09:25 <No data on this case meets the specified criteria> 1. Right acute otitis media 2. Right mastoiditis 3. Right mastoid subperiosteal abscess I identified the patient and participated in the time-out.: Yes Procedure Operation Date: 12/26/23 09:25 <No data on this case meets the specified criteria> 1. Right myringotomy and tube placement 2. Incision and drainage right postauricular abscess Surgeon Cornelius Bailon MD [employer] none Estimated Blood Loss 10 Findings See Below 1. Purulence R middle ear space 2. R postauricular abscess Specimens 1. Right middle ear fluid 2. Right postauricular abscess 3. Right mastoid tissue Complications none Indications The patient is a 48-year-old female with a history of a cleft lip and palate and longstanding eustachian tube dysfunction admitted with right acute otitis media and mastoiditis. History includes prior mastoidectomy. Imaging and exam concerning for a right mastoiditis with abscess. It was recommended that she undergo right myringotomy and tube placement as well as incision and drainage of right postauricular abscess. The risk and benefits of the procedure were discussed in detail and the patient elected to proceed. Informed consent was obtained. Description of Procedure The patient was identified in the preoperative holding area and brought back to the operating room. She was placed supine on the operating room table. After the successful induction of general orotracheal anesthesia by the anesthesia team, the patient was prepped and draped in the usual fashion for a right myringotomy and tube placement with I&D of a postauricular abscess. A surgical timeout was performed. The right ear was examined under the operative microscope. The ear canal was edematous. It was cleared of cerumen using a curette. The tympanic membrane was noted to be intact and opaque. Only the posterior half of the tympanic membrane was able to be visualized due to canal edema. Wide myringotomy was made in the posterior inferior quadrant with purulent debris suctioned from the middle ear space. An Monreal tube was placed through the incision and positioned such the lumen could be visualized on otoscopy. Afrin drops were instilled in the ear canal given inflammation and bleeding. Hemostasis was achieved. Attention was then turned to the right postauricular region. An area of fluctuance was noted and decompressed using needle aspiration with return of approximately 3 cc of gross purulent material. An incision was then carried out through the prior postauricular incision site. The muscle flaps were dissected bluntly and a large mastoid cavity was encountered. Purulent debris was suctioned clear from the space, taking care to avoid injury to the tegmen, sigmoid sinus, and middle ear. White fibrinous material was noted in the mastoid cavity. This was biopsied and sent for pathology to evaluate for cholesteatoma. The mastoid cavity was then irrigated with copious saline and suctioned clear. Hemostasis was achieved using electrocautery. 1/4 inch [place] was placed through the incision and secured with a drain stitch. The muscle flaps were then closed with an interrupted 3-0 Vicryl suture. The skin was sutured with interrupted 3-0 nylon suture. A [place] dressing was applied. The patient was then turned over to the anesthesia team and awakened without difficulty. She was transferred to the PACU in good condition. I was present and performed the entire procedure myself I attest to the content of the Intraoperative Record and any orders documented therein. Any exceptions are noted below.
--- NOTE | 2023-12-26 17:04 | Post Operative Brief Note ---
PG Immediate Post Op with CF Date of Surgery December 26, 2023 Pre & Post Diagnosis Operation Date: 12/26/23 09:25 <No data on this case meets the specified criteria> I identified the patient and participated in the time-out.: Yes Procedure Operation Date: 12/26/23 09:25 <No data on this case meets the specified criteria> Surgeon Cornelius Bailon MD Compensation/Benefits Specialist none Estimated Blood Loss 10 Findings See Below 1. R AOM with possible cholesteatoma 2. R postauricular abscess Specimens Specimen Description: Culture: 1. Right Middle Ear Fluid 2. Right Postauricular Abscess Perminent: A. Right Mastoid Tissue R/O Blastoma Drains Terry Drain (0.25 inch)
--- NOTE | 2023-12-26 17:47 | Anesthesiology Progress Note ---
Date of Service December 26, 2023 Anesthesia Post Procedure Vital Signs Vital Signs: Temp Pulse Pulse Resp BP Pulse Ox O2 Del Method 12/26/23 17:40 98.6 F 98 H 16 127/81 100 Room Air 12/26/23 17:30 96 H 15 132/79 100 Oxymask 12/26/23 17:20 96 H 12 127/85 100 Oxymask 12/26/23 17:15 98.1 F 100 H 12 138/88 97 Oxymask 12/26/23 15:18 98.4 F 97 H 16 126/77 94 Room Air 12/26/23 07:34 98.4 F 95 H 16 104/72 98 Room Air 12/26/23 07:12 98.2 F 99 H 16 104/70 94 Room Air 12/25/23 21:35 98.1 F 96 H 16 124/74 97 Room Air O2 Flow Rate 12/26/23 17:40 12/26/23 17:30 2 12/26/23 17:20 6 12/26/23 17:15 6 12/26/23 15:18 12/26/23 07:34 12/26/23 07:12 12/25/23 21:35 Pain Intensity Right Ear: Pain Intensity: 7 Right Jaw: Pain Intensity: 6 Transfer of Care Handoff Completed per policy Notes Mental Status: alert / awake / arousable and participated in evaluation Patient Amnestic to Procedure: Yes Nausea / Vomiting: adequately controlled Pain: adequately controlled Airway Patency, RR, SpO2: stable & adequate BP & HR: stable & adequate Hydration State: stable & adequate Anesthetic Complications: no major complications apparent and Pt Satisfied with anesthetic care
[2023-12-27 06:43] LABS: Basophils # (auto) 0.03 K/uL (0.00-0.20); Basophils % (auto) 0.2 %; Hematocrit (blood only) 35.4 % (37.0-47.0); Hemoglobin 11.7 g/dl (12.0-16.0); Immature Granulocytes # (auto) 0.08 K/uL (0.01-0.20); Immature Granulocytes % (auto) 0.6 %; Lymphocytes # (auto) 0.99 K/uL (1.20-3.40); Lymphocytes % (auto) 7.3 %; Mean Corpuscular Hemoglobin 29.4 pg (25.0-34.0); Mean Corpuscular Hgb Conc 33.1 g/dL (32.0-36.0); Mean Corpuscular Volume 88.9 fL (80.0-100.0); Neutrophils # (auto) 11.98 K/uL (1.40-6.50); Neutrophils % (auto) 88.9 %; Platelet Count 256 K/uL (130-400); RDW Coefficient of Variation 14.8 % (11.5-14.5); RDW Standard Deviation 48.2 fL (36.4-46.3); Red Blood Count 3.98 M/uL (4.20-5.40); White Blood Count 13.48 K/ul (4.8-10.8)
[2023-12-27 06:55] LABS: BUN Creatinine Ratio 10.4 (10-20); Calcium 9.2 mg/dl (8.6-10.3); Creatinine Clr Calc Pharmacy 41.7 ml/min; Est GFR (African American) 45.5 ml/min; Est GFR (Non-African American) 39.2 ml/min; Potassium 4.7 mmol/L (3.5-5.1)
--- NOTE | 2023-12-27 10:26 | Hospitalist Progress Note ---
Date of Service December 27, 2023 Assessment & Plan (1) Mastoiditis of right side: Plan: Recurrent R ear infection - s/p distant mastoidectomy many years ago - [place]x [place] [facility] [place] - On admission,CT temporal bone showed no change compared to previous study done in June 2023. -Findings suggestive of right-sided otitis externa with periauricular soft tissue prominence no drainable fluid collections. - However, CT internal auditory canal with contrast showed evidence of Possible cholesteatoma and right postauricular abscess -she is now s/p myringotomy and tube placement. -Will continue empiric IV Zosyn -Await intra operative cultures. 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 Plan DVT prophylaxis: SCDs, ambulate Diet: Admission and Anticipated Discharge Date Admission Date: December 24, 2023 Subjective Patient seen and examined, pain is much improved following surgery Review of Systems Review of Systems: All systems reviewed are negative, apart from the ones contained in the history. Physical Exam Physical Exam: The patient is awake, alert and oriented 3, well developed and well nourished, normocephalic and atraumatic, lying in bed and in no acute distress. HEENT--PERRL, EOMI, right ear swelling Neck--supple. No JVD. No bruits. Thyroid normal, trachea midline, no adenopathy. Heart--normal S1 and S2. No murmurs, rubs or gallops. Lungs--clear bilaterally, no respiratory distress, no accessory muscle use. Abdomen--normal bowel sounds and soft. Extremities--no cyanosis or clubbing. No edema. Dermatologic--normal skin turgor, normal color, no abnormal lymph nodes, no rash. Neurologic--cranial nerves II through XII grossly intact. Rheumatologic--normal range of motion. Psychiatric--normal affect. Results & Data Results & Data Vital Signs (Past 12 Hours) Vital Signs Temp Pulse Pulse Resp BP Pulse Ox O2 Del Method 12/27/23 08:07 Room Air 12/27/23 07:39 97.5 F L 87 16 110/82 95 Room Air 12/27/23 06:41 97.9 F 83 16 114/76 93 Room Air 12/27/23 03:18 97.9 F 89 16 116/75 95 Room Air PG Care Time/CCT Total # of Minutes Spent Total Time Spent with Patient: Total time spent is greater than 50% in coordination of care (as documented) at patient's floor/unit and/or counseling patient: Coding Level of Care Code 38210 SUB INP/OBS CARE 2/35MIN Diagnoses Mastoiditis of right side H70.91 Anxiety F41.9 Idiopathic anaphylaxis, subsequent encounter T78.2XXD Encounter type: subsequent encounter Mast cell disorder D47.09 Cleft lip Q36.9 Time Spent (min) 35 (3) Idiopathic anaphylaxis Encounter type: subsequent encounter Qualified Code(s): T78.2XXD - Anaphylactic shock, unspecified, subsequent encounter
--- NOTE | 2023-12-27 12:03 | Ears,Nose,Throat Progress Note ---
Date of Service December 27, 2023 Assessment & Plan (1) Mastoiditis of right side: (2) Cellulitis of postauricular region: (3) Parotitis: Plan 48yF h/o cleft lip/palate and longstanding ETD s/p multiple tubes and remote R CWU mastoidectomy now admitted with R mastoiditis. Previous episode 06/2023, [place] [facility] [place] E. Coli, treated with bedside I+D. Exam shows significant postauricular cellulitis and R parotitis. There is no obvious drainable fluid collection on exam today, but CT IAC with contrast showed developing abscess per my read. Underwent R M+T and I+D R postauricular abscess 12/26/23. Clinically improving -OK for diet -Tobramycin - 5 drops to right ear BID x14 days -Continue IV abx - f/u cultures -Consider ID evaluation -If she requires additional complex surgical care, discussed she will need to be transferred to a tertiary care center with otology expertise Admission and Anticipated Discharge Date Admission Date: December 24, 2023 Subjective RULA o/n. Pain significantly improved. Physical Exam Physical Exam: General: No acute distress, nonlabored respirations Face: normal facial motion Eyes: Extraocular motion is intact. Normal sclera and conjunctiva Ears: AD: External ear with improvingerythema, edema of pinna. Postauricular incision intact with michael in place, ss drainage on laura dressing. EAC with yellow debris, tube in place and patent. +cleft lip s/p repair +cleft palate with obturator Edema/inflammation over R parotid gland, firm without fluctuance, improving Neck: soft, no masses or lymphadenopathy. Mild cellulitis extending over tail of parotid on right and neck, improving Results & Data Vital Signs (Past 12 Hours) Vital Signs Temp Pulse Pulse Resp BP Pulse Ox O2 Del Method 12/27/23 11:42 36.7 C 95 H 16 144/72 H 97 Room Air 12/27/23 08:07 Room Air 12/27/23 07:39 36.4 C L 87 16 110/82 95 Room Air 12/27/23 06:41 36.6 C 83 16 114/76 93 Room Air 12/27/23 03:18 36.6 C 89 16 116/75 95 Room Air PG Care Time/CCT Total # of Minutes Spent Total Time Spent with Patient: Total time spent is greater than 50% in coordination of care (as documented) at patient's floor/unit and/or counseling patient: Coding Level of Care Code None Diagnoses Mastoiditis of right side H70.91 Cellulitis of postauricular region L03.811 Parotitis K11.20
[2023-12-28 06:07] LABS: Hematocrit (blood only) 34.3 % (37.0-47.0); Mean Corpuscular Hemoglobin 28.9 pg (25.0-34.0); Mean Corpuscular Hgb Conc 32.1 g/dL (32.0-36.0); Mean Platelet Volume 10.5 fL (9.4-12.4); Platelet Count 270 K/uL (130-400); RDW Coefficient of Variation 15.1 % (11.5-14.5); RDW Standard Deviation 49.6 fL (36.4-46.3); Red Blood Count 3.81 M/uL (4.20-5.40)
[2023-12-28 06:20] LABS: BUN Creatinine Ratio 11.8 (10-20); Est GFR (African American) 40.6 ml/min; Est GFR (Non-African American) 35.1 ml/min; Potassium 4.5 mmol/L (3.5-5.1)
--- NOTE | 2023-12-28 09:21 | Ears,Nose,Throat Progress Note ---
Date of Service December 28, 2023 Assessment & Plan (1) Mastoiditis of right side: (2) Cellulitis of postauricular region: (3) Parotitis: Plan 48yF h/o cleft lip/palate and longstanding ETD s/p multiple tubes and remote R CWU mastoidectomy now admitted with R mastoiditis. Previous episode 06/2023, cx at [facility] [place] grew E. Coli, treated with bedside I+D. Underwent R M+T and I+D R postauricular abscess 12/26/23. Clinically improving, WBC normalized. Cx E. Coli. -OK for diet -Tobramycin - 5 drops to right ear BID x14 days -Continue abx - would transition to PO for total of 14 days upon discharge -OK for d/c home today from ENT standpoint -Do not shower until 12/31/23. OK to sponge bathe but keep incision dry -Zechariah dressing to remain in place until follow up -F/u Saturday in my office - [phone] -If she requires additional complex surgical care, discussed she will need to be transferred to a tertiary care center with otology expertise Admission and Anticipated Discharge Date Admission Date: December 24, 2023 Subjective RULA o/n. Mild tenderness R posterior neck. +draiange from michael Physical Exam Physical Exam: General: No acute distress, nonlabored respirations Face: normal facial motion Eyes: Extraocular motion is intact. Normal sclera and conjunctiva Ears: AD: External ear with resolution of erythema/edema of pinna. Postauricular incision intact with michael in place, ss drainage on zechariah dressing. No cellulitis, edema, fluctuance. EAC with yellow/bloody debris, tube in place and patent. +cleft lip s/p repair +cleft palate with obturator R parotid gland very mildly firm Neck: soft, no masses or lymphadenopathy. Neck cellulitis resolved Results & Data Vital Signs (Past 12 Hours) Vital Signs Temp Pulse Resp BP Pulse Ox O2 Del Method 12/28/23 07:17 36.4 C L 82 18 132/86 97 Room Air PG Care Time/CCT Total # of Minutes Spent Total Time Spent with Patient: Total time spent is greater than 50% in coordination of care (as documented) at patient's floor/unit and/or counseling patient: Coding Level of Care Code None Diagnoses Mastoiditis of right side H70.91 Cellulitis of postauricular region L03.811 Parotitis K11.20
--- NOTE | 2023-12-28 09:55 | Discharge Summary ---
Date of Service December 28, 2023 Admission HPI Per Admitting Provider Paola is a 48-year-old female with past medical history of chronic idiopathic urticaria, mast cell disorder, hide allergy to sulfa/Cipro/contrast, depression, restless leg syndrome, past TM perforation, mastoidectomy/mastoiditis reviewed at [facility] 7 months ago who presents to the ER for right ear pain with extension into the face. She was seen 7 months ago and transferred to [facility] for mastoiditis which required multiple needle aspirations in which was culture positive for E. coli. While in ER temporal bone CT showed evidence of right-sided otitis externa with soft tissue prominence continuous with her mastoidectomy site which could be either postoperative or reflective of a chronic inflammatory/infectious process. Right middle ear effusion with bony irregularity of the ossicles was noted. There was no noted drainable fluid collection. No significant change compared to 2022. Case was reviewed between ER provider and ENT Dr. Bailon. Patient was felt to be appropriate for admission to this facility. [facility] was contacted. She was recommended for inpatient admission and Zosyn. Prior E. coli cultures which have been in the urine were ampicillin resistant, Unasyn intermediate, and Zosyn sensitive. [place] [facility]. She does have a leukocytosis of 14. Creatinine baseline fluctuates 1.271.56, admitting creatinine 1.35 near baseline. Renally dose medications as needed CRP slightly elevated at 0.99 and trended UA is not infected appearing [place] elevated, normalized with fluid She is seen at the bedside with her present. She reports she developed some posterior right ear discomfort last night around 10 PM. This morning she had increased ear discomfort and throbbing not severe but behind her ear at the site of her prior mastoidectomy and aspirations. She has had some sweats with menopause, otherwise denies fever, chills, sweats. No chest pain or chest pressure. No lightheadedness, dizziness, syncope, presyncope. No nausea or vomiting. Other than her ear discomfort she has not noticed any new symptoms. She did take her medications this morning. Reviewed plan of care and discussions with [facility]ENT above and patient in agreement with plan. No additional questions Medical History: Reviewed Medications: Reviewed Surgical History: Reviewed Family history: Reviewed Allergies: Reviewed Social History: Reviewed Code Status: Full Principal Diagnosis mastoiditis Discharge Exam The patient is awake, alert and oriented 3, well developed and well nourished, normocephalic and atraumatic, lying in bed and in no acute distress. HEENT--PERRL, EOMI, right ear swelling Neck--supple. No JVD. No bruits. Thyroid normal, trachea midline, no adenopathy. Heart--normal S1 and S2. No murmurs, rubs or gallops. Lungs--clear bilaterally, no respiratory distress, no accessory muscle use. Abdomen--normal bowel sounds and soft. Extremities--no cyanosis or clubbing. No edema. Dermatologic--normal skin turgor, normal color, no abnormal lymph nodes, no rash. Neurologic--cranial nerves II through XII grossly intact. Rheumatologic--normal range of motion. Psychiatric--normal affect. Discharge Data Allergies Allergy/AdvReac Type Severity Reaction Status Date / Time ciprofloxacin [From Cipro] Allergy Intermediate Hives Verified 11/06/23 15:10 Iodinated Contrast Media Allergy Intermediate HIVES, Verified 11/06/23 15:10 DIARRHEA Sulfa (Sulfonamide Allergy Intermediate HIVES Verified 11/06/23 15:10 Antibiotics) Consultations 12/24/23 16:03 ED Decision to Admit Stat 12/24/23 17:50 Consult Otolaryngology (Head and Neck) Routine Procedures Performed Operation Date: 12/26/23 09:25 Actual Procedures p Right Myringotomy and Tube Insertion(Right) - Cornelius Bailon MD s Right Postauricular Abscess Incision and Drainage(Right) - Cornelius Bailon MD Ordered Studies 12/24/23 13:05 CT temporal bones wo con Stat 12/25/23 12:19 CT IAC BI w con Routine Hospital Course (1) Mastoiditis of right side: Recurrent R ear infection - s/p distant mastoidectomy many years ago - hx of [place]itis [place] [facility] [place] - On admission,CT temporal bone showed no change compared to previous study done in June 2023. -Findings suggestive of right-sided otitis externa with periauricular soft tissue prominence no drainable fluid collections. - However, CT internal auditory canal with contrast showed evidence of Possible cholesteatoma and right postauricular abscess -she is now s/p myringotomy and tube placement. intra operative cultures growing E coli pansensitive Will d/c home on PO Augmentin for 7 days (2) Anxiety: Anxiety/Depression - Continue nortrypitaline - Continue Seroquel - COntinue vortioxetine (3) Idiopathic anaphylaxis: History of anaphylaxis, idiopathic urticaria Continue cetirizine twice daily Continue Pepcid at bedtime Hydroxyzine as needed for itching - Epi 0.3mg IM q5m if needed for anaphylaxis/airway involvement (4) Mast cell disorder: as noted (5) Cleft lip: With prosthesis in place. Plan DVT prophylaxis: SCDs, ambulate Diet: Total Time Total Time Spent Total Time Spent (In Minutes): 35 Discharge Plan Discharge Items Patient Disposition: Home - Self-Care Reason For Visit: RECURRENT R MASTOIDITIS Discharge Diagnosis: mastoiditis Activity: Resume your previous activity Non-emergency contact: Primary Care Provider and Surgeon Call non-emergency contact if: you have any medication questions Follow-up/Referrals: Shaniqua Macdonald CRNP [Primary Care Provider] - Diet: Regular Addtl Attending Provider Instructions: please follow up with your ENT Surgeon on Saturday as planned Pending Studies at Discharge: No Stand-Alone Forms: My RegaloCard, Smoking Cessation Medications and DC Order Prescriptions: New ibuprofen 400 mg tablet 400 mg PO Q8H PRN (Reason: pain) Qty: 14 0RF amoxicillin-pot clavulanate [Augmentin] 500-125 mg tablet 1 tab PO BID 7 Days Qty: 14 0RF Continued nortriptyline 25 mg capsule 75 mg PO HS Qty: 270 0RF famotidine 20 mg tablet 20 mg PO HS Patient Comments: [facility] [id number]-crshqizqcifsn-[id number] 50-325-40 mg tablet 1 tab PO Q4H PRN (Reason: headache) Qty: 30 0RF cetirizine 10 mg tablet 10 mg PO BID Qty: 60 11RF cyanocobalamin (vitamin B-12) 1,000 mcg/mL solution 1,000 mcg subcut .COMPLEX Rx Instructions: 1,000 mcg subcut once a month; Trintellix 10 mg tablet 20 mg PO DAILY rizatriptan 10 mg tablet,disintegrating 10 mg PO .COMPLEX Qty: 10 0RF Rx Instructions: 10 mg PO AT ONSET OF HEADACHE THEN MAY REPEAT AFTER 2 HOURS NEEDED; epinephrine [EpiPen 2-Hugo] 0.3 mg/0.3 mL auto-injector 0.3 mg IM Q4H PRN (Reason: anaphylaxis) Qty: 2 1RF quetiapine [Seroquel] 25 mg tablet 75 mg PO HS alprazolam 1 mg tablet 1 mg PO HS Qty: 30 Centrum Women 18-400 mg-mcg Tablet 1 tab PO HS hydroxyzine HCl 25 mg tablet 25 mg PO HS PRN (Reason: Itching) ropinirole 0.25 mg tablet 0.5 mg PO HS PRN (Reason: Other) folic acid 1 mg tablet 1 mg PO DAILY Rx Instructions: TAKE 1 TABLET BY MOUTH EVERY DAY Discharge Orders: Discharge Order (Routine); Ordered 12/28/23 Ordered By: Gricel Thorne Admission Data Admit Date/Time: 12/24/23 16:39 Attending Provider: Gricel Thorne Admit Provider: Bear Grissom Primary Care Provider: Shaniqua Macdonald Other Providers: Bear Grissom; Cornelius Bailon Coding Level of Care Code 66160 INP/OBS DISCH >30 MIN Diagnoses Mastoiditis of right side H70.91 Anxiety F41.9 Idiopathic anaphylaxis, subsequent encounter T78.2XXD Encounter type: subsequent encounter Mast cell disorder D47.09 Cleft lip Q36.9 Time Spent (min) 35
== END 2023-12-28 13:03 | disposition home or self-care (01) | DRG 144 ==
LOC: ED 12:16 → 3E 16:39 → SUATTDRO 16:39 → 3E 17:45